=== PATIENT | female | born 1950 | race Two or more races ===

== ENCOUNTER → 2016-09-11 | Outpatient (CLI) | payer MEDICARE, MEDICAID ==
[~2016-09-11] VITALS: Ht 144.8 cm; Wt 115.0 kg
[~2016-09-11] MED LIST: ALBU2TAB42 PO; AMLO-512 PO; HYDR25TA PO; LOSA25TA21 PO; PRAV40 PO; UMEC1DIS IH
[2016-09-11 10:26] VITALS: BP 133/81
== END | disposition home or self-care (01) ==
LOC: SRCNTR 10:06
PROVIDERS: ATTEND Internal Medicine Critical Care Medicine
DX: I25.10 Atherosclerotic heart disease of native coronary artery without angina pectoris (principal); E11.9 Type 2 diabetes mellitus without complications; J96.22 Acute and chronic respiratory failure with hypercapnia; G47.33 Obstructive sleep apnea (adult) (pediatric); E66.01 Morbid (severe) obesity due to excess calories; I10 Essential (primary) hypertension
CPT/HCPCS: G0463

== ENCOUNTER → 2016-10-11 | Outpatient (CLI) | payer MEDICARE, MEDICAID | END | disposition home or self-care (01) | LOC: RESP 13:09 | PROVIDERS: ATTEND Internal Medicine Critical Care Medicine | DX: G47.33 Obstructive sleep apnea (adult) (pediatric) (principal); J96.22 Acute and chronic respiratory failure with hypercapnia | CPT/HCPCS: 94010; 94726; 94727; 94729 ==

== ENCOUNTER → 2016-11-08 | Outpatient (CLI) | payer MEDICARE, MEDICAID ==
[~2016-11-08] VITALS: Ht 147.3 cm; Wt 117.4 kg
[~2016-11-08] MED LIST changes: +TYL3B PO
[2016-11-08 11:28] VITALS: BP 124/54
== END | disposition home or self-care (01) ==
LOC: SRCNTR 10:52
PROVIDERS: ATTEND Internal Medicine Critical Care Medicine
DX: J96.22 Acute and chronic respiratory failure with hypercapnia (principal); G47.33 Obstructive sleep apnea (adult) (pediatric); E66.01 Morbid (severe) obesity due to excess calories; I25.10 Atherosclerotic heart disease of native coronary artery without angina pectoris; E11.9 Type 2 diabetes mellitus without complications; I10 Essential (primary) hypertension; J45.909 Unspecified asthma, uncomplicated; E78.5 Hyperlipidemia, unspecified; Z87.891 Personal history of nicotine dependence
CPT/HCPCS: G0463

== ENCOUNTER → 2016-11-22 | Outpatient (CLI) | payer MEDICARE, MEDICAID ==
[~2016-11-22] VITALS: Ht 147.3 cm; Wt 116.0 kg
[2016-11-22 11:28] VITALS: BP 135/58
== END | disposition home or self-care (01) ==
LOC: SRCNTR 11:03
PROVIDERS: ATTEND Hospitalist
DX: E11.65 Type 2 diabetes mellitus with hyperglycemia (principal); I10 Essential (primary) hypertension; E78.5 Hyperlipidemia, unspecified; G47.33 Obstructive sleep apnea (adult) (pediatric); E66.01 Morbid (severe) obesity due to excess calories; J45.909 Unspecified asthma, uncomplicated; I25.10 Atherosclerotic heart disease of native coronary artery without angina pectoris; M25.561 Pain in right knee; M25.562 Pain in left knee; M54.9 Dorsalgia, unspecified; L98.8 Other specified disorders of the skin and subcutaneous tissue
CPT/HCPCS: G0463

== ENCOUNTER → 2016-12-04 | Outpatient (CLI) | payer MEDICARE, MEDICAID | END | disposition home or self-care (01) | LOC: CARDPV 13:51 | PROVIDERS: ATTEND Hospitalist | DX: D49.89 Neoplasm of unspecified behavior of other specified sites (principal) | CPT/HCPCS: 76536 ==

== ENCOUNTER → 2016-12-04 | Outpatient (CLI) | payer MEDICARE, MEDICAID | END | disposition home or self-care (01) | LOC: RADPV 14:04 | PROVIDERS: ATTEND Specialist | DX: M43.17 Spondylolisthesis, lumbosacral region (principal); M51.36 Other intervertebral disc degeneration, lumbar region; M51.37 Other intervertebral disc degeneration, lumbosacral region; M47.816 Spondylosis without myelopathy or radiculopathy, lumbar region; M12.88 Other specific arthropathies, not elsewhere classified, other specified site | CPT/HCPCS: 72114 ==

== ENCOUNTER → 2016-12-04 | Outpatient (CLI) | payer MEDICARE, MEDICAID | END | disposition home or self-care (01) | LOC: RADPV 14:01 | PROVIDERS: ATTEND Internal Medicine Critical Care Medicine | DX: J44.9 Chronic obstructive pulmonary disease, unspecified (principal); I50.9 Heart failure, unspecified; I51.7 Cardiomegaly; I70.0 Atherosclerosis of aorta; M47.814 Spondylosis without myelopathy or radiculopathy, thoracic region; J98.11 Atelectasis | CPT/HCPCS: 71020 ==

== ENCOUNTER → 2017-01-31 | Outpatient (CLI) | payer MEDICARE, MEDICAID ==
[~2017-01-31] VITALS: Ht 147.3 cm; Wt 116.3 kg
[2017-01-31 11:54] VITALS: BP 126/72
== END | disposition home or self-care (01) ==
LOC: SRCNTR 11:43
PROVIDERS: ATTEND Hospitalist
DX: I10 Essential (primary) hypertension (principal); I25.10 Atherosclerotic heart disease of native coronary artery without angina pectoris; E11.9 Type 2 diabetes mellitus without complications; E78.5 Hyperlipidemia, unspecified; E66.9 Obesity, unspecified
CPT/HCPCS: G0463

== ENCOUNTER → 2017-02-07 | Outpatient (CLI) | payer MEDICARE, MEDICAID ==
[~2017-02-07] VITALS: Ht 144.8 cm; Wt 117.0 kg
[~2017-02-07] MED LIST changes: +ACET-2247 PO; +ALBU8HFA IH; +AMOX-462 PO; +LORA10TA7 PO; +METF500T4 PO; +MOME13HF IH; +NAPR-58 PO; +PRED10 PO; +PRED20 PO; +SOLI5 PO; +TERA2 PO
[2017-02-07 11:34] VITALS: BP 114/45
== END | disposition home or self-care (01) ==
LOC: SRCNTR 11:27
PROVIDERS: ATTEND Internal Medicine Critical Care Medicine
DX: I10 Essential (primary) hypertension (principal); I25.10 Atherosclerotic heart disease of native coronary artery without angina pectoris; E66.01 Morbid (severe) obesity due to excess calories; E11.9 Type 2 diabetes mellitus without complications; G47.33 Obstructive sleep apnea (adult) (pediatric); J96.22 Acute and chronic respiratory failure with hypercapnia
CPT/HCPCS: G0463

== ENCOUNTER → 2017-04-23 | Outpatient (CLI) | payer MEDICARE, OTHER ==
[~2017-04-23] MED LIST changes: -ACET-2247 PO; -ALBU8HFA IH; -AMOX-462 PO; -LORA10TA7 PO; -METF500T4 PO; -MOME13HF IH; -NAPR-58 PO; -PRAV40 PO; +PRAV40TA4 PO; -PRED10 PO; -PRED20 PO; -SOLI5 PO; -TERA2 PO
[2017-04-23 11:19] LABS: BASOPHILS % (AUTO) 0.5 % (0.0-2.0); EOSINOPHILS % (AUTO) 2.2 % (1.0-6.0); HEMATOCRIT 37.6 % (36-46); HEMOGLOBIN 12.5 g/dL (12.0-16.0); LYMPHOCYTES # (AUTO) 2.3 K/uL (1.0-4.8); LYMPHOCYTES % (AUTO) 28.2 % (22.0-44.0); MEAN CORPUSCULAR HEMOGLOBIN 32.1 pg (26.0-34.0); MEAN CORPUSCULAR HGB CONC 33.3 G/dL (31.0-37.0); MEAN CORPUSCULAR VOLUME 96 fL (80-100); MONOCYTES # (AUTO) 0.6 K/uL (0.1-1.0); MONOCYTES % (AUTO) 7.1 % (2.0-9.0); PLATELET COUNT (AUTO) 186 K/uL (150-450); RED CELL DISTRIBUTION WIDTH 15.8 % (11.5-14.5); WHITE BLOOD COUNT (AUTO) 8.1 K/uL (4.5-11.0)
[2017-04-23 11:26] LABS: HEMOGLOBIN A1C 6.2 % (4.5-6.2)
[2017-04-23 11:30] LABS: ALANINE AMINOTRANSFERASE 44 U/L (12-78); ALBUMIN 3.5 g/dL (3.4-5.0); ANION GAP 9 mmol/L (8-16); ASPARTATE AMINOTRANSFERASE 38 U/L (15-37); BILIRUBIN,TOTAL 0.3 mg/dL (0.1-1.0); CALCIUM, TOTAL 8.7 mg/dL (8.8-10.5); CARBON DIOXIDE 27 mmol/L (22-29); CHLORIDE 103 mmol/L (98-107); CHOL/HDL RATIO 5.5 (3.9-5.7); CREATININE 0.73 mg/dL (0.60-1.30); GLOMERULAR FILTR. RATE CALC > 60 mL/min (>60); POTASSIUM 3.8 mmol/L (3.5-5.1); SODIUM SERUM 139 mmol/L (136-145); THYROID STIMULATING HORMONE 2.91 uIU/mL (0.36-3.74); TOTAL PROTEIN, SERUM 7.8 g/dL (6.4-8.2); UREA NITROGEN, BLOOD 18 mg/dL (7-18)
== END | disposition home or self-care (01) ==
LOC: LABPV 07:21
PROVIDERS: ATTEND Hospitalist
DX: E11.9 Type 2 diabetes mellitus without complications (principal); E03.9 Hypothyroidism, unspecified
CPT/HCPCS: 82271; 83036; 84439; 84443

== ENCOUNTER → 2017-04-29 | Outpatient (CLI) | payer MEDICARE, MEDICAID ==
[~2017-04-29] VITALS: Ht 144.8 cm; Wt 115.0 kg
[~2017-04-29] MED LIST changes: +BACL10TA PO; +NAPR-58 PO; +UMEC1DIS PO
[2017-04-29 12:40] VITALS: BP 138/61
== END | disposition home or self-care (01) ==
LOC: SRCNTR 12:38
PROVIDERS: ATTEND Hospitalist
DX: I10 Essential (primary) hypertension (principal); E66.01 Morbid (severe) obesity due to excess calories; E78.5 Hyperlipidemia, unspecified; I25.10 Atherosclerotic heart disease of native coronary artery without angina pectoris; E11.65 Type 2 diabetes mellitus with hyperglycemia; J45.909 Unspecified asthma, uncomplicated; G47.33 Obstructive sleep apnea (adult) (pediatric)
CPT/HCPCS: G0463

== ENCOUNTER → 2017-06-19 | Outpatient (CLI) | payer MEDICARE, MEDICAID ==
[~2017-06-19] MED LIST changes: +INFLUENZA VIRUS VACCINE QVS 2017-18 (3YR+)/PF 60 MCG/0.5 ML SYRINGE IM ONE; -UMEC1DIS PO
[2017-06-19 13:51] VITALS: BP 147/78
== END | disposition home or self-care (01) ==
LOC: SRCNTR 13:26
PROVIDERS: ATTEND Internal Medicine Critical Care Medicine
DX: G47.33 Obstructive sleep apnea (adult) (pediatric) (principal); J96.22 Acute and chronic respiratory failure with hypercapnia; J44.9 Chronic obstructive pulmonary disease, unspecified; I10 Essential (primary) hypertension; E11.9 Type 2 diabetes mellitus without complications; E66.01 Morbid (severe) obesity due to excess calories; E78.5 Hyperlipidemia, unspecified; I25.10 Atherosclerotic heart disease of native coronary artery without angina pectoris; Z87.891 Personal history of nicotine dependence
CPT/HCPCS: 90471 ×2; G0463

== ENCOUNTER → 2017-07-18 | Outpatient (CLI) | payer MEDICARE, MEDICAID ==
[~2017-07-18] VITALS: Ht 144.8 cm; Wt 117.0 kg
[~2017-07-18] MED LIST changes: -INFLUENZA VIRUS VACCINE QVS 2017-18 (3YR+)/PF 60 MCG/0.5 ML SYRINGE IM ONE
[2017-07-18 13:55] VITALS: BP 142/66
== END | disposition home or self-care (01) ==
LOC: SRCNTR 12:43
PROVIDERS: ATTEND Hospitalist
DX: G47.33 Obstructive sleep apnea (adult) (pediatric) (principal); E66.01 Morbid (severe) obesity due to excess calories; E11.9 Type 2 diabetes mellitus without complications; E78.5 Hyperlipidemia, unspecified; I10 Essential (primary) hypertension; I25.10 Atherosclerotic heart disease of native coronary artery without angina pectoris; J44.9 Chronic obstructive pulmonary disease, unspecified; M25.561 Pain in right knee; M25.562 Pain in left knee
CPT/HCPCS: G0463

== ENCOUNTER → 2017-10-03 | Outpatient (CLI) | payer MEDICARE, MEDICAID ==
[~2017-10-03] VITALS: Ht 144.8 cm; Wt 113.0 kg
[~2017-10-03] MED LIST changes: +AUD NEB; -BACL10TA PO; +BENZ-51 PO; +BUDE0.5A3 NEB; +FLUT16H NASAL; +IPRNEB IH; +PRED20 PO
[2017-10-03 12:43] VITALS: BP 102/43
== END | disposition home or self-care (01) ==
LOC: SRCNTR 12:30
PROVIDERS: ATTEND Internal Medicine Critical Care Medicine
DX: J96.22 Acute and chronic respiratory failure with hypercapnia (principal); G47.33 Obstructive sleep apnea (adult) (pediatric); J44.1 Chronic obstructive pulmonary disease with (acute) exacerbation; E66.01 Morbid (severe) obesity due to excess calories; I25.10 Atherosclerotic heart disease of native coronary artery without angina pectoris; I10 Essential (primary) hypertension; E11.9 Type 2 diabetes mellitus without complications; E78.5 Hyperlipidemia, unspecified
CPT/HCPCS: G0463

== ENCOUNTER → 2017-10-17 | Outpatient (CLI) | payer MEDICARE, MEDICAID ==
[~2017-10-17] VITALS: Ht 147.3 cm; Wt 115.0 kg
[2017-10-17 11:49] VITALS: BP 142/66
== END | disposition home or self-care (01) ==
LOC: SRCNTR 11:43
PROVIDERS: ATTEND Hospitalist
DX: J44.9 Chronic obstructive pulmonary disease, unspecified (principal); E78.5 Hyperlipidemia, unspecified; I10 Essential (primary) hypertension; E66.9 Obesity, unspecified; G47.33 Obstructive sleep apnea (adult) (pediatric); M25.561 Pain in right knee; M25.562 Pain in left knee; I25.10 Atherosclerotic heart disease of native coronary artery without angina pectoris; J45.909 Unspecified asthma, uncomplicated
CPT/HCPCS: G0463

== ENCOUNTER → 2017-11-18 | Outpatient (CLI) | payer MEDICARE, MEDICAID ==
[~2017-11-18] VITALS: Ht 144.8 cm; Wt 119.0 kg
[~2017-11-18] MED LIST changes: +ALBU8HFA IH; -AUD NEB; -BUDE0.5A3 NEB; -IPRNEB IH; -PRED20 PO
[2017-11-18 12:03] VITALS: BP 137/54
== END | disposition home or self-care (01) ==
LOC: SRCNTR 12:02
PROVIDERS: ATTEND Hospitalist
DX: I10 Essential (primary) hypertension (principal); E78.5 Hyperlipidemia, unspecified; I25.10 Atherosclerotic heart disease of native coronary artery without angina pectoris; E66.01 Morbid (severe) obesity due to excess calories; J45.909 Unspecified asthma, uncomplicated; E11.9 Type 2 diabetes mellitus without complications
CPT/HCPCS: G0463

== ENCOUNTER → 2017-12-09 | Outpatient (CLI) | payer MEDICARE, MEDICAID ==
[~2017-12-09] VITALS: Ht 144.8 cm; Wt 119.0 kg
[2017-12-09 13:21] VITALS: BP 153/84
== END | disposition home or self-care (01) ==
LOC: SRCNTR 13:04
PROVIDERS: ATTEND Internal Medicine Critical Care Medicine
DX: J96.22 Acute and chronic respiratory failure with hypercapnia (principal); G47.33 Obstructive sleep apnea (adult) (pediatric); E66.01 Morbid (severe) obesity due to excess calories; I25.10 Atherosclerotic heart disease of native coronary artery without angina pectoris; E11.9 Type 2 diabetes mellitus without complications; I10 Essential (primary) hypertension; J45.909 Unspecified asthma, uncomplicated; E78.5 Hyperlipidemia, unspecified
CPT/HCPCS: G0463

== ENCOUNTER → 2018-02-17 | Outpatient (CLI) | payer MEDICARE, MEDICAID ==
[~2018-02-17] VITALS: Ht 144.8 cm; Wt 114.5 kg
[~2018-02-17] MED LIST changes: -ALBU2TAB42 PO
[2018-02-17 11:35] VITALS: BP 178/67
== END | disposition home or self-care (01) ==
LOC: SRCNTR 11:24
PROVIDERS: ATTEND Internal Medicine Critical Care Medicine
DX: J96.22 Acute and chronic respiratory failure with hypercapnia (principal); G47.33 Obstructive sleep apnea (adult) (pediatric); J45.909 Unspecified asthma, uncomplicated; I10 Essential (primary) hypertension; E11.9 Type 2 diabetes mellitus without complications; E78.5 Hyperlipidemia, unspecified; I25.10 Atherosclerotic heart disease of native coronary artery without angina pectoris; E66.01 Morbid (severe) obesity due to excess calories
CPT/HCPCS: G0463

== ENCOUNTER → 2018-04-24 | Outpatient (CLI) | payer MEDICARE, MEDICAID ==
[~2018-04-24] MED LIST changes: +LOSA25TA16 PO; -LOSA25TA21 PO
[2018-04-24 09:38] VITALS: BP 157/81
== END | disposition home or self-care (01) ==
LOC: SRCNTR 09:31
PROVIDERS: ATTEND Hospitalist
DX: J43.9 Emphysema, unspecified (principal); I25.10 Atherosclerotic heart disease of native coronary artery without angina pectoris; E78.00 Pure hypercholesterolemia, unspecified; I10 Essential (primary) hypertension; E11.9 Type 2 diabetes mellitus without complications
CPT/HCPCS: 90471; 96372; G0463

== ENCOUNTER → 2018-05-22 | Outpatient (CLI) | payer MEDICARE, MEDICAID ==
[~2018-05-22] VITALS: Ht 144.8 cm; Wt 114.0 kg
[2018-05-22 13:09] VITALS: BP 175/78
[2018-05-22 14:14] LABS: GLUCOMETER DEV NAME(LOC) SHC; GLUCOSE,POINT OF CARE 146 MG/DL (70-110)
== END | disposition home or self-care (01) ==
LOC: SRCNTR 11:51
PROVIDERS: ATTEND Hospitalist
DX: G47.33 Obstructive sleep apnea (adult) (pediatric) (principal); E66.9 Obesity, unspecified; I10 Essential (primary) hypertension; E11.65 Type 2 diabetes mellitus with hyperglycemia; E78.5 Hyperlipidemia, unspecified; I25.10 Atherosclerotic heart disease of native coronary artery without angina pectoris; R43.0 Anosmia; J45.909 Unspecified asthma, uncomplicated; M25.561 Pain in right knee; M25.562 Pain in left knee
CPT/HCPCS: 82962 ×2; G0463

== ENCOUNTER → 2018-06-13 | Outpatient (CLI) | payer MEDICARE, OTHER ==
[2018-06-13 10:13] LABS: EOSINOPHILS % (AUTO) 0 % (1.0-6.0); HEMATOCRIT 40.8 % (36-46); HEMOGLOBIN 13.7 g/dL (12.0-16.0); LYMPHOCYTES # (AUTO) 1.3 K/uL (1.0-4.8); LYMPHOCYTES % (AUTO) 11.7 % (22.0-44.0); MEAN CORPUSCULAR HEMOGLOBIN 32.2 pg (26.0-34.0); MEAN CORPUSCULAR HGB CONC 33.6 G/dL (31.0-37.0); MEAN CORPUSCULAR VOLUME 96 fL (80-100); MONOCYTES # (AUTO) 0.4 K/uL (0.1-1.0); MONOCYTES % (AUTO) 3.9 % (2.0-9.0); NEUTROPHILS # (AUTO) 9.5 K/uL (1.8-7.7); NEUTROPHILS % (AUTO) 84.4 % (40.0-70.0); PLATELET COUNT (AUTO) 212 K/uL (150-450); RED BLOOD CELL COUNT(AUTO) 4.26 MIL/uL (4.00-5.20)
[2018-06-13 10:27] LABS: APPEARANCE,URINE CLEAR (CLEAR); BILIRUBIN,URINE NEGATIVE (NEGATIVE); GLUCOSE, URINE (UA) NEGATIVE (NEGATIVE); KETONES,URINE NEGATIVE (NEGATIVE); LEUKOCYTE ESTERASE ,URINE NEGATIVE (NEGATIVE); NITRATE,URINE NEGATIVE (NEGATIVE); OCCULT BLOOD,URINE NEGATIVE (NEGATIVE); PH,URINE 6.5 (5.0-8.0); PROTEIN,URINE NEGATIVE (NEGATIVE); UROBILINOGEN,URINE 0.2 mg/dL (<=1.0)
[2018-06-13 10:32] LABS: ALANINE AMINOTRANSFERASE 30 U/L (12-78); ALBUMIN 3.8 g/dL (3.4-5.0); ALKALINE PHOSPHATASE 88 U/L (46-116); ANION GAP 8 mmol/L (8-16); ASPARTATE AMINOTRANSFERASE 24 U/L (15-37); BILIRUBIN,TOTAL 0.3 mg/dL (0.1-1.0); CALCIUM, TOTAL 8.8 mg/dL (8.8-10.5); CARBON DIOXIDE 27 mmol/L (22-29); CHLORIDE 103 mmol/L (98-107); CHOL/HDL RATIO 3.6 (3.9-5.7); CHOLESTEROL 249 mg/dL (131-200); CREATININE 0.69 mg/dL (0.60-1.30); FREE T4 (FREE THYROXINE) 1.11 ng/dL (0.76-1.46); GLOMERULAR FILTR. RATE CALC > 60 mL/min (>60); GLUCOSE,RANDOM 175 mg/dL (70-110); HDL CHOLESTEROL 69 mg/dL (40-60); LDL CHOL (CALC.) 167 mg/dL (0-130); POTASSIUM 4.3 mmol/L (3.5-5.1); SODIUM SERUM 138 mmol/L (136-145); TOTAL PROTEIN, SERUM 8.1 g/dL (6.4-8.2); TRIGLYCERIDES 64 mg/dL (15-150); UREA NITROGEN, BLOOD 13 mg/dL (7-18)
[2018-06-13 10:35] LABS: HEMOGLOBIN A1C 6.4 % (4.5-6.2)
== END | disposition home or self-care (01) ==
LOC: MSR 08:47
PROVIDERS: ATTEND Hospitalist
DX: I73.9 Peripheral vascular disease, unspecified (principal); M17.0 Bilateral primary osteoarthritis of knee; E78.5 Hyperlipidemia, unspecified; E11.9 Type 2 diabetes mellitus without complications; I10 Essential (primary) hypertension; M81.0 Age-related osteoporosis without current pathological fracture
CPT/HCPCS: 77080; 83036; 84439; 84443; 87086; 93925; 93970

== ENCOUNTER → 2018-07-03 | Outpatient (CLI) | payer MEDICARE, MEDICAID ==
[~2018-07-03] VITALS: Ht 144.8 cm; Wt 114.0 kg
[2018-07-03 14:22] VITALS: BP 172/66
== END | disposition home or self-care (01) ==
LOC: SRCNTR 14:11
PROVIDERS: ATTEND Internal Medicine Critical Care Medicine
DX: J96.22 Acute and chronic respiratory failure with hypercapnia (principal); G47.33 Obstructive sleep apnea (adult) (pediatric); E66.01 Morbid (severe) obesity due to excess calories; I25.10 Atherosclerotic heart disease of native coronary artery without angina pectoris; I10 Essential (primary) hypertension; E11.9 Type 2 diabetes mellitus without complications; J45.909 Unspecified asthma, uncomplicated; E78.5 Hyperlipidemia, unspecified
CPT/HCPCS: G0463

== ENCOUNTER → 2018-07-17 | Outpatient (CLI) | payer MEDICARE, OTHER ==
[~2018-07-17] VITALS: Ht 144.8 cm; Wt 113.0 kg
[~2018-07-17] MED LIST changes: +AMOX1TAB16 PO; -LOSA25TA16 PO; +LOSA25TA41 PO; +PROM5SYR2 PO; +ROSU40 PO
[2018-07-17 10:39] VITALS: BP 122/58
== END | disposition home or self-care (01) ==
LOC: SRCNTR 10:33
PROVIDERS: ATTEND Hospitalist
DX: I10 Essential (primary) hypertension (principal); E11.65 Type 2 diabetes mellitus with hyperglycemia; E78.5 Hyperlipidemia, unspecified; J45.909 Unspecified asthma, uncomplicated; I25.10 Atherosclerotic heart disease of native coronary artery without angina pectoris; G47.33 Obstructive sleep apnea (adult) (pediatric); E66.9 Obesity, unspecified; M54.9 Dorsalgia, unspecified; R43.0 Anosmia
CPT/HCPCS: G0463

== ENCOUNTER → 2018-10-14 | Outpatient (CLI) | payer MEDICARE, OTHER ==
[~2018-10-14] MED LIST changes: +ATOR20TA86 PO; -BENZ-51 PO; +METF-960 PO; -PRAV40TA4 PO; -UMEC1DIS IH
== END | disposition home or self-care (01) ==
LOC: MSR 13:21
PROVIDERS: ATTEND Internal Medicine Critical Care Medicine
DX: I70.0 Atherosclerosis of aorta (principal); I11.9 Hypertensive heart disease without heart failure; Z87.891 Personal history of nicotine dependence
CPT/HCPCS: 94010; 94726; 94727; 94729

== ENCOUNTER → 2018-10-17 | Outpatient (CLI) | payer MEDICARE, OTHER ==
[~2018-10-17] VITALS: Ht 144.8 cm; Wt 115.0 kg
[2018-10-17 15:57] VITALS: BP 143/75
== END | disposition home or self-care (01) ==
LOC: SRCNTR 15:41
PROVIDERS: ATTEND Internal Medicine Critical Care Medicine
DX: J96.22 Acute and chronic respiratory failure with hypercapnia (principal); G47.33 Obstructive sleep apnea (adult) (pediatric); I25.10 Atherosclerotic heart disease of native coronary artery without angina pectoris; E11.9 Type 2 diabetes mellitus without complications; I10 Essential (primary) hypertension
CPT/HCPCS: G0463

== ENCOUNTER → 2018-10-23 | Outpatient (CLI) | payer MEDICARE, OTHER ==
[~2018-10-23] VITALS: Ht 144.8 cm; Wt 115.0 kg
[~2018-10-23] MED LIST changes: -AMOX1TAB16 PO; -FLUT16H NASAL; -NAPR-58 PO; -ROSU40 PO; -TYL3B PO
[2018-10-23 11:49] VITALS: BP 138/57
== END | disposition home or self-care (01) ==
LOC: SRCNTR 11:40
PROVIDERS: ATTEND Hospitalist
DX: E78.5 Hyperlipidemia, unspecified (principal); I10 Essential (primary) hypertension; E11.9 Type 2 diabetes mellitus without complications; J45.909 Unspecified asthma, uncomplicated; I25.10 Atherosclerotic heart disease of native coronary artery without angina pectoris; E66.01 Morbid (severe) obesity due to excess calories
CPT/HCPCS: G0463

== ENCOUNTER → 2019-04-17 | Outpatient (CLI) | payer MEDICARE, OTHER ==
[~2019-04-17] MED LIST changes: -AMLO-512 PO; +AMLO10TA7 PO
[2019-04-17 11:24] LABS: BASOPHILS % (AUTO) 0.7 % (0.0-2.0); EOSINOPHILS % (AUTO) 1.9 % (1.0-6.0); HEMATOCRIT 38.7 % (36-46); HEMOGLOBIN 12.7 g/dL (12.0-16.0); LYMPHOCYTES # (AUTO) 2.3 K/uL (1.0-4.8); LYMPHOCYTES % (AUTO) 27.4 % (22.0-44.0); MEAN CORPUSCULAR HEMOGLOBIN 30.8 pg (26.0-34.0); MEAN CORPUSCULAR HGB CONC 32.7 G/dL (31.0-37.0); MEAN CORPUSCULAR VOLUME 94 fL (80-100); MONOCYTES # (AUTO) 0.6 K/uL (0.1-1.0); NEUTROPHILS # (AUTO) 5.3 K/uL (1.8-7.7); PLATELET COUNT (AUTO) 194 K/uL (150-450); RED BLOOD CELL COUNT(AUTO) 4.12 MIL/uL (4.00-5.20); RED CELL DISTRIBUTION WIDTH 15.8 % (11.5-14.5)
[2019-04-17 11:29] LABS: HEMOGLOBIN A1C 6.4 % (4.5-6.2)
[2019-04-17 12:13] LABS: ALANINE AMINOTRANSFERASE 31 U/L (12-78); ALBUMIN 3.6 g/dL (3.4-5.0); ALKALINE PHOSPHATASE 79 U/L (46-116); ANION GAP 11 mmol/L (8-16); ASPARTATE AMINOTRANSFERASE 24 U/L (15-37); BILIRUBIN,TOTAL 0.5 mg/dL (0.1-1.0); CALCIUM, TOTAL 9.7 mg/dL (8.8-10.5); CARBON DIOXIDE 26 mmol/L (22-29); CHLORIDE 102 mmol/L (98-107); CHOL/HDL RATIO 5.1 (3.9-5.7); CHOLESTEROL 229 mg/dL (131-200); CREATININE 0.67 mg/dL (0.60-1.30); FREE T4 (FREE THYROXINE) 1.13 ng/dL (0.76-1.46); GLOMERULAR FILTR. RATE CALC > 60 mL/min (>60); GLUCOSE,RANDOM 120 mg/dL (70-110); HDL CHOLESTEROL 45 mg/dL (40-60); LDL CHOL (CALC.) 157 mg/dL (0-130); POTASSIUM 3.8 mmol/L (3.5-5.1); SODIUM SERUM 139 mmol/L (136-145); THYROID STIMULATING HORMONE 2.28 uIU/mL (0.36-3.74); TOTAL PROTEIN, SERUM 8.1 g/dL (6.4-8.2); TRIGLYCERIDES 133 mg/dL (15-150)
[2019-04-17 12:28] LABS: UREA NITROGEN, BLOOD 13 mg/dL (7-18)
== END | disposition home or self-care (01) ==
LOC: LABPV 10:39
PROVIDERS: ATTEND Hospitalist
DX: I10 Essential (primary) hypertension (principal); I25.10 Atherosclerotic heart disease of native coronary artery without angina pectoris; E78.00 Pure hypercholesterolemia, unspecified; E11.9 Type 2 diabetes mellitus without complications; J43.9 Emphysema, unspecified; J45.909 Unspecified asthma, uncomplicated; G47.30 Sleep apnea, unspecified
CPT/HCPCS: 83036; 84439; 84443

== ENCOUNTER → 2020-06-09 | Outpatient (CLI) | payer MEDICARE, OTHER ==
[~2020-06-09] VITALS: Ht 147.3 cm; Wt 107.3 kg
[~2020-06-09] MED LIST changes: +AMLO-258 PO; -AMLO10TA7 PO; +DICL100G31 TP; +DOXE45CR5 TP; +HYDR-1475 PO; -HYDR25TA PO; +INFLUENZA VIRUS VACCINE QVS 2020-21 (6MO+)/PF 60 MCG/0.5 ML SYRINGE IM ONE; +LOSA25TA21 PO; -LOSA25TA41 PO; -PROM5SYR2 PO
[2020-06-09 11:48] VITALS: BP 169/69
== END | disposition home or self-care (01) ==
LOC: SRCNTR 11:28
PROVIDERS: ATTEND Hospitalist
DX: I10 Essential (primary) hypertension (principal); I25.10 Atherosclerotic heart disease of native coronary artery without angina pectoris; G47.33 Obstructive sleep apnea (adult) (pediatric); E66.01 Morbid (severe) obesity due to excess calories; E78.5 Hyperlipidemia, unspecified; E11.9 Type 2 diabetes mellitus without complications; M25.562 Pain in left knee; M25.561 Pain in right knee; M54.9 Dorsalgia, unspecified; J45.909 Unspecified asthma, uncomplicated; Z23 Encounter for immunization
CPT/HCPCS: 90471; 90686; G0463

== ENCOUNTER → 2020-08-16 | Outpatient (CLI) | payer MEDICARE ==
[~2020-08-16] MED LIST changes: -INFLUENZA VIRUS VACCINE QVS 2020-21 (6MO+)/PF 60 MCG/0.5 ML SYRINGE IM ONE
[2020-08-16 10:06] LABS: BASOPHILS % (AUTO) 0.7 % (0.0-2.0); EOSINOPHILS % (AUTO) 1.6 % (1.0-6.0); HEMOGLOBIN 13.4 g/dL (12.0-16.0); LYMPHOCYTES # (AUTO) 2.6 K/uL (1.0-4.8); LYMPHOCYTES % (AUTO) 29.1 % (22.0-44.0); MEAN CORPUSCULAR HEMOGLOBIN 31.5 pg (26.0-34.0); MEAN CORPUSCULAR HGB CONC 32.8 G/dL (31.0-37.0); MEAN CORPUSCULAR VOLUME 96 fL (80-100); MONOCYTES # (AUTO) 0.6 K/uL (0.1-1.0); MONOCYTES % (AUTO) 6.3 % (2.0-9.0); NEUTROPHILS # (AUTO) 5.5 K/uL (1.8-7.7); NEUTROPHILS % (AUTO) 62.3 % (40.0-70.0); PLATELET COUNT (AUTO) 202 K/uL (150-450); RED BLOOD CELL COUNT(AUTO) 4.27 MIL/uL (4.00-5.20); RED CELL DISTRIBUTION WIDTH 15.2 % (11.5-14.5)
[2020-08-16 10:22] LABS: ALANINE AMINOTRANSFERASE 20 U/L (12-78); ALBUMIN 3.4 g/dL (3.4-5.0); ALKALINE PHOSPHATASE 96 U/L (46-116); ANION GAP 9 mmol/L (8-16); ASPARTATE AMINOTRANSFERASE 17 U/L (15-37); BILIRUBIN,TOTAL 0.4 mg/dL (0.1-1.0); CALCIUM, TOTAL 8.6 mg/dL (8.8-10.5); CARBON DIOXIDE 29 mmol/L (22-29); CHLORIDE 101 mmol/L (98-107); CHOL/HDL RATIO 3.5 (3.9-5.7); CHOLESTEROL 197 mg/dL (131-200); GLUCOSE,RANDOM 108 mg/dL (70-110); HDL CHOLESTEROL 56 mg/dL (40-60); LDL CHOL (CALC.) 116 mg/dL (0-130); POTASSIUM 4.2 mmol/L (3.5-5.1); SODIUM SERUM 139 mmol/L (136-145); TOTAL PROTEIN, SERUM 7.7 g/dL (6.4-8.2); TRIGLYCERIDES 123 mg/dL (15-150); UREA NITROGEN, BLOOD 14 mg/dL (7-18)
[2020-08-16 10:23] LABS: GLOMERULAR FILTR. RATE CALC > 60 mL/min (>60)
[2020-08-16 10:32] LABS: APPEARANCE,URINE CLEAR (CLEAR); BILIRUBIN,URINE NEGATIVE (NEGATIVE); GLUCOSE, URINE (UA) NEGATIVE (NEGATIVE); KETONES,URINE NEGATIVE (NEGATIVE); LEUKOCYTE ESTERASE ,URINE NEGATIVE (NEGATIVE); NITRATE,URINE NEGATIVE (NEGATIVE); OCCULT BLOOD,URINE NEGATIVE (NEGATIVE); PH,URINE 5.5 (5.0-8.0); PROTEIN,URINE NEGATIVE (NEGATIVE); UROBILINOGEN,URINE 0.2 mg/dL (<=1.0)
[2020-08-16 10:34] LABS: BACTERIA,URINE None Seen /HPF (None Seen); RBC,URINE None Seen /HPF (0-2); WBC,URINE None Seen /HPF (0-5)
== END | disposition home or self-care (01) ==
LOC: LABPV 09:32
PROVIDERS: ATTEND Hospitalist
DX: E11.9 Type 2 diabetes mellitus without complications (principal)
CPT/HCPCS: 83036

== ENCOUNTER → 2020-08-29 | Outpatient (CLI) | payer MEDICARE ==
[~2020-08-29] VITALS: Ht 144.8 cm; Wt 108.6 kg
[2020-08-29 11:58] VITALS: BP 141/66
== END | disposition home or self-care (01) ==
LOC: SRCNTR 11:27
PROVIDERS: ATTEND Internal Medicine Critical Care Medicine
DX: G47.33 Obstructive sleep apnea (adult) (pediatric) (principal); I25.10 Atherosclerotic heart disease of native coronary artery without angina pectoris; E11.9 Type 2 diabetes mellitus without complications; I10 Essential (primary) hypertension; J96.22 Acute and chronic respiratory failure with hypercapnia
CPT/HCPCS: G0463

== ENCOUNTER → 2020-09-01 | Outpatient (CLI) | payer MEDICARE | END | disposition home or self-care (01) | LOC: RADPV 10:29 | PROVIDERS: ATTEND Internal Medicine Critical Care Medicine | DX: M19.012 Primary osteoarthritis, left shoulder (principal); M77.8 Other enthesopathies, not elsewhere classified; I70.0 Atherosclerosis of aorta; I51.7 Cardiomegaly; J44.9 Chronic obstructive pulmonary disease, unspecified | CPT/HCPCS: 71046; 71046-TC ==

== ENCOUNTER → 2020-09-08 | Outpatient (CLI) | payer MEDICARE, OTHER ==
[~2020-09-08] VITALS: Ht 144.8 cm; Wt 109.0 kg
[2020-09-08 10:45] VITALS: BP 152/72
== END | disposition home or self-care (01) ==
LOC: SRCNTR 10:30
PROVIDERS: ATTEND Hospitalist
DX: I10 Essential (primary) hypertension (principal); E11.9 Type 2 diabetes mellitus without complications; E78.5 Hyperlipidemia, unspecified; I25.10 Atherosclerotic heart disease of native coronary artery without angina pectoris; J45.909 Unspecified asthma, uncomplicated; E66.01 Morbid (severe) obesity due to excess calories
CPT/HCPCS: G0463

== ENCOUNTER → 2020-12-07 | Outpatient (CLI) | payer MEDICARE, OTHER ==
[~2020-12-07] VITALS: Ht 144.8 cm; Wt 108.5 kg
[~2020-12-07] MED LIST changes: -HYDR-1475 PO; +HYDR25TA2 PO
[2020-12-07 10:50] VITALS: BP 152/56
== END | disposition home or self-care (01) ==
LOC: SRCNTR 10:28
PROVIDERS: ATTEND Hospitalist
DX: I10 Essential (primary) hypertension (principal); E11.9 Type 2 diabetes mellitus without complications; E78.5 Hyperlipidemia, unspecified; I25.10 Atherosclerotic heart disease of native coronary artery without angina pectoris; J45.909 Unspecified asthma, uncomplicated; K64.9 Unspecified hemorrhoids; E66.01 Morbid (severe) obesity due to excess calories
CPT/HCPCS: G0463; Z7500

== ENCOUNTER → 2021-03-03 | Outpatient (CLI) | payer MEDICARE, OTHER ==
[2021-03-03 12:33] LABS: BASOPHILS % (AUTO) 0.8 % (0.0-2.0); EOSINOPHILS % (AUTO) 1.5 % (1.0-6.0); HEMATOCRIT 39.8 % (36-46); HEMOGLOBIN 12.9 g/dL (12.0-16.0); LYMPHOCYTES % (AUTO) 24.3 % (22.0-44.0); MEAN CORPUSCULAR HEMOGLOBIN 31.7 pg (26.0-34.0); MEAN CORPUSCULAR HGB CONC 32.5 G/dL (31.0-37.0); MEAN CORPUSCULAR VOLUME 98 fL (80-100); MONOCYTES # (AUTO) 0.6 K/uL (0.1-1.0); MONOCYTES % (AUTO) 7.6 % (2.0-9.0); NEUTROPHILS # (AUTO) 5.5 K/uL (1.8-7.7); NEUTROPHILS % (AUTO) 65.8 % (40.0-70.0); PLATELET COUNT (AUTO) 189 K/uL (150-450); RED BLOOD CELL COUNT(AUTO) 4.07 MIL/uL (4.00-5.20); RED CELL DISTRIBUTION WIDTH 14.8 % (11.5-14.5)
[2021-03-03 12:43] LABS: HEMOGLOBIN A1C 6.1 % (3.8-5.6)
[2021-03-03 12:49] LABS: ALANINE AMINOTRANSFERASE 22 U/L (12-78); ALBUMIN 3.5 g/dL (3.4-5.0); ALKALINE PHOSPHATASE 75 U/L (46-116); ANION GAP 7 mmol/L (8-16); ASPARTATE AMINOTRANSFERASE 19 U/L (15-37); BILIRUBIN,TOTAL 0.5 mg/dL (0.1-1.0); CALCIUM, TOTAL 8.9 mg/dL (8.8-10.5); CARBON DIOXIDE 29 mmol/L (22-29); CHLORIDE 103 mmol/L (98-107); CHOL/HDL RATIO 4.3 (3.9-5.7); CHOLESTEROL 229 mg/dL (131-200); CREATININE 0.46 mg/dL (0.60-1.30); GLOMERULAR FILTR. RATE CALC > 60 mL/min (>60); GLUCOSE,RANDOM 109 mg/dL (70-110); HDL CHOLESTEROL 53 mg/dL (40-60); LDL CHOL (CALC.) 147 mg/dL (0-130); SODIUM SERUM 139 mmol/L (136-145); TOTAL PROTEIN, SERUM 7.5 g/dL (6.4-8.2); TRIGLYCERIDES 146 mg/dL (15-150); UREA NITROGEN, BLOOD 12 mg/dL (7-18)
== END | disposition home or self-care (01) ==
LOC: LABPV 11:50
PROVIDERS: ATTEND Hospitalist
DX: M25.511 Pain in right shoulder (principal); M75.101 Unspecified rotator cuff tear or rupture of right shoulder, not specified as traumatic; I10 Essential (primary) hypertension; E11.9 Type 2 diabetes mellitus without complications
CPT/HCPCS: 80053; 80061; 83036; 85025

== ENCOUNTER → 2021-03-09 | Outpatient (CLI) | payer MEDICARE, OTHER ==
[~2021-03-09] VITALS: Ht 144.8 cm; Wt 109.3 kg
[2021-03-09 10:36] VITALS: BP 164/70
== END | disposition home or self-care (01) ==
LOC: SRCNTR 10:17
PROVIDERS: ATTEND Hospitalist
DX: M25.511 Pain in right shoulder (principal); I10 Essential (primary) hypertension; E11.9 Type 2 diabetes mellitus without complications; E78.5 Hyperlipidemia, unspecified; I25.10 Atherosclerotic heart disease of native coronary artery without angina pectoris; J45.909 Unspecified asthma, uncomplicated; K64.9 Unspecified hemorrhoids; E66.01 Morbid (severe) obesity due to excess calories; Z68.43 Body mass index [BMI] 50.0-59.9, adult
CPT/HCPCS: G0463; Z7500

== ENCOUNTER → 2021-06-15 | Outpatient (CLI) | payer MEDICARE, OTHER ==
[~2021-06-15] VITALS: Ht 144.8 cm; Wt 110.0 kg
[~2021-06-15] MED LIST changes: +LOSA-370 PO; -LOSA25TA21 PO; +METF-1211 PO; -METF-960 PO
[2021-06-15 10:43] VITALS: BP 167/80
== END | disposition home or self-care (01) ==
LOC: SRCNTR 10:08
PROVIDERS: ATTEND Hospitalist
DX: I11.9 Hypertensive heart disease without heart failure (principal); I25.10 Atherosclerotic heart disease of native coronary artery without angina pectoris; E11.8 Type 2 diabetes mellitus with unspecified complications; J45.909 Unspecified asthma, uncomplicated; E78.5 Hyperlipidemia, unspecified; E66.01 Morbid (severe) obesity due to excess calories
CPT/HCPCS: G0463; Z7500

== ENCOUNTER → 2021-07-03 | Outpatient (CLI) | payer MEDICARE, OTHER ==
[~2021-07-03] VITALS: Ht 142.2 cm; Wt 110.4 kg
[~2021-07-03] MED LIST changes: +INFLUENZA VIRUS VACCINE QVS 2021-22 (6MO+)/PF 60 MCG/0.5 ML SYRINGE IM. ONE; -LOSA-370 PO; +LOSA25TA21 PO
[2021-07-03 11:11] VITALS: BP 156/79
== END | disposition home or self-care (01) ==
LOC: SRCNTR 10:32
PROVIDERS: ATTEND Internal Medicine Critical Care Medicine
DX: Z23 Encounter for immunization (principal); I25.10 Atherosclerotic heart disease of native coronary artery without angina pectoris; I10 Essential (primary) hypertension; E78.5 Hyperlipidemia, unspecified; Z68.43 Body mass index [BMI] 50.0-59.9, adult; E11.9 Type 2 diabetes mellitus without complications; J45.909 Unspecified asthma, uncomplicated; E66.01 Morbid (severe) obesity due to excess calories
CPT/HCPCS: 90471; 90686; G0463

== ENCOUNTER → 2022-03-21 | Outpatient (CLI) | payer MEDICARE, OTHER ==
[~2022-03-21] MED LIST changes: -INFLUENZA VIRUS VACCINE QVS 2021-22 (6MO+)/PF 60 MCG/0.5 ML SYRINGE IM. ONE; +LOSA-381 PO; -LOSA25TA21 PO
[2022-03-21 12:10] VITALS: BP 146/62
== END | disposition home or self-care (01) ==
LOC: SRCNTR 11:45
PROVIDERS: ATTEND Internal Medicine Critical Care Medicine
DX: I10 Essential (primary) hypertension (principal); I25.10 Atherosclerotic heart disease of native coronary artery without angina pectoris; E11.9 Type 2 diabetes mellitus without complications; J45.909 Unspecified asthma, uncomplicated; E78.5 Hyperlipidemia, unspecified; E66.9 Obesity, unspecified; G47.33 Obstructive sleep apnea (adult) (pediatric); J96.22 Acute and chronic respiratory failure with hypercapnia
CPT/HCPCS: G0463; Z7500

== ENCOUNTER → 2022-03-29 | Outpatient (CLI) | payer MEDICARE, OTHER ==
[~2022-03-29] VITALS: Ht 144.8 cm; Wt 106.4 kg
[2022-03-29 13:29] VITALS: BP 137/52
== END | disposition home or self-care (01) ==
LOC: SRCNTR 12:31
PROVIDERS: ATTEND Hospitalist
DX: I10 Essential (primary) hypertension (principal); E78.5 Hyperlipidemia, unspecified; E66.9 Obesity, unspecified
CPT/HCPCS: G0463

== ENCOUNTER → 2022-04-17 | Outpatient (CLI) | payer MEDICARE, OTHER ==
[2022-04-17 10:42] LABS: BASOPHILS % (AUTO) 0.7 % (0.0-2.0); EOSINOPHILS % (AUTO) 0.8 % (1.0-6.0); HEMATOCRIT 39.8 % (36-46); LYMPHOCYTES # (AUTO) 1.9 K/uL (1.0-4.8); LYMPHOCYTES % (AUTO) 19.3 % (22.0-44.0); MEAN CORPUSCULAR HEMOGLOBIN 31.1 pg (26.0-34.0); MEAN CORPUSCULAR HGB CONC 32.8 G/dL (31.0-37.0); MEAN CORPUSCULAR VOLUME 95 fL (80-100); MONOCYTES # (AUTO) 0.6 K/uL (0.1-1.0); MONOCYTES % (AUTO) 6.5 % (2.0-9.0); NEUTROPHILS # (AUTO) 7.2 K/uL (1.8-7.7); NEUTROPHILS % (AUTO) 72.7 % (40.0-70.0); PLATELET COUNT (AUTO) 179 K/uL (150-450); RED BLOOD CELL COUNT(AUTO) 4.19 MIL/uL (4.00-5.20); RED CELL DISTRIBUTION WIDTH 15.4 % (11.5-14.5)
[2022-04-17 10:54] LABS: HEMOGLOBIN A1C 6.5 % (3.8-5.6)
[2022-04-17 12:01] LABS: ALANINE AMINOTRANSFERASE 13 U/L (12-78); ALBUMIN 3.1 g/dL (3.4-5.0); ALKALINE PHOSPHATASE 90 U/L (46-116); ANION GAP 3 mmol/L (8-16); ASPARTATE AMINOTRANSFERASE 17 U/L (15-37); BILIRUBIN,TOTAL 0.3 mg/dL (0.1-1.0); CALCIUM, TOTAL 8.3 mg/dL (8.8-10.5); CARBON DIOXIDE 28 mmol/L (22-29); CHLORIDE 104 mmol/L (98-107); CHOL/HDL RATIO 2.8 (3.9-5.7); CHOLESTEROL 181 mg/dL (131-200); CREATININE 0.55 mg/dL (0.60-1.30); GLUCOSE,RANDOM 102 mg/dL (70-110); HDL CHOLESTEROL 65 mg/dL (40-60); LDL CHOL (CALC.) 98 mg/dL (0-130); POTASSIUM 3.9 mmol/L (3.5-5.1); SODIUM SERUM 135 mmol/L (136-145); THYROID STIMULATING HORMONE 1.07 uIU/mL (0.36-3.74); TOTAL PROTEIN, SERUM 6.8 g/dL (6.4-8.2); TRIGLYCERIDES 88 mg/dL (15-150); UREA NITROGEN, BLOOD 17 mg/dL (7-18); URIC ACID 4.5 mg/dL (2.6-7.2)
[2022-04-17 12:02] LABS: GLOMERULAR FILTR. RATE CALC > 60 mL/min (>60)
== END | disposition home or self-care (01) ==
LOC: MSR 10:20
PROVIDERS: ATTEND Hospitalist
DX: J44.9 Chronic obstructive pulmonary disease, unspecified (principal); I10 Essential (primary) hypertension; E11.9 Type 2 diabetes mellitus without complications
CPT/HCPCS: 71046; 80053; 80061; 83036; 84443; 84550; 85025; 36415-L1; 36415-TC

== ENCOUNTER → 2022-05-03 | Outpatient (CLI) | payer MEDICARE, OTHER ==
[~2022-05-03] MED LIST changes: +ALBUTEROL SULFATE HFA 90 MCG/PUFF 8 GM INHALER IH PRN; +ATORVASTATIN CALCIUM 20 MG TABLET PO SCH; +AmLODIPine BESYLATE 10 MG TABLET PO SCH; +GLIP2.5T2 PO; +HYDROCHLOROTHIAZIDE 25 MG TABLET PO SCH; +INFLUENZA VIRUS VACCINE QVS 2022-23 (6MO+)/PF 60 MCG/0.5 ML SYRINGE IM. ONE; +LOSARTAN POTASSIUM 25 MG TABLET PO SCH; +MetFORMIN HCL 500 MG TABLET PO SCH; +OMEP20 PO; +PRED-554 PO
[2022-05-03 12:54] VITALS: BP 178/76
== END | disposition home or self-care (01) ==
LOC: SRCNTR 11:53
PROVIDERS: ATTEND Hospitalist
DX: Z23 Encounter for immunization (principal); I10 Essential (primary) hypertension; E78.5 Hyperlipidemia, unspecified; K59.00 Constipation, unspecified; E66.9 Obesity, unspecified; E11.9 Type 2 diabetes mellitus without complications; M19.90 Unspecified osteoarthritis, unspecified site; R10.9 Unspecified abdominal pain; J44.9 Chronic obstructive pulmonary disease, unspecified; I25.10 Atherosclerotic heart disease of native coronary artery without angina pectoris; Z79.84 Long term (current) use of oral hypoglycemic drugs; Z79.899 Other long term (current) drug therapy
CPT/HCPCS: 90686; 90471; G0463

== ENCOUNTER 2022-06-24 22:26 | Emergency (ER) | payer MEDICARE, OTHER ==
[~2022-06-24] VITALS: Ht 152.4 cm; Wt 113.6 kg
[~2022-06-24 22:26] MED LIST changes: -ALBUTEROL SULFATE HFA 90 MCG/PUFF 8 GM INHALER IH PRN; -ATORVASTATIN CALCIUM 20 MG TABLET PO SCH; -AmLODIPine BESYLATE 10 MG TABLET PO SCH; -HYDROCHLOROTHIAZIDE 25 MG TABLET PO SCH; -INFLUENZA VIRUS VACCINE QVS 2022-23 (6MO+)/PF 60 MCG/0.5 ML SYRINGE IM. ONE; -LOSARTAN POTASSIUM 25 MG TABLET PO SCH; -METF-1211 PO; -MetFORMIN HCL 500 MG TABLET PO SCH
[2022-06-25 02:46] LABS: COVID AG,FIA SOURCE NASAL SWAB
[2022-06-25 02:47] LABS: BASOPHILS % (AUTO) 0.7 % (0.0-2.0); EOSINOPHILS % (AUTO) 1.6 % (1.0-6.0); HEMATOCRIT 41.4 % (36-46); HEMOGLOBIN 13.6 g/dL (12.0-16.0); LYMPHOCYTES # (AUTO) 3.8 K/uL (1.0-4.8); LYMPHOCYTES % (AUTO) 26.9 % (22.0-44.0); MEAN CORPUSCULAR HEMOGLOBIN 31.9 pg (26.0-34.0); MEAN CORPUSCULAR HGB CONC 32.9 G/dL (31.0-37.0); MEAN CORPUSCULAR VOLUME 97 fL (80-100); MONOCYTES % (AUTO) 6.8 % (2.0-9.0); NEUTROPHILS # (AUTO) 9.1 K/uL (1.8-7.7); PLATELET COUNT (AUTO) 226 K/uL (150-450); RED BLOOD CELL COUNT(AUTO) 4.26 MIL/uL (4.00-5.20); RED CELL DISTRIBUTION WIDTH 15.6 % (11.5-14.5)
[2022-06-25 03:00] LABS: ANION GAP 5 mmol/L (8-16); CALCIUM, TOTAL 8.8 mg/dL (8.8-10.5); CARBON DIOXIDE 36 mmol/L (22-29); CHLORIDE 99 mmol/L (98-107); CREATININE 0.71 mg/dL (0.60-1.30); GLUCOSE,RANDOM 111 mg/dL (70-110); POTASSIUM 4.1 mmol/L (3.5-5.1); SODIUM SERUM 140 mmol/L (136-145); UREA NITROGEN, BLOOD 28 mg/dL (7-18)
[2022-06-25 03:03] LABS: GLOMERULAR FILTR. RATE CALC > 60 mL/min (>60)
[2022-06-25 03:05] LABS: INFLUENZA TYPE A NEGATIVE FOR TYPE A (NEGATIVE); INFLUENZA TYPE B NEGATIVE FOR TYPE B (NEGATIVE)
[2022-06-25 03:05] LABS: ALANINE AMINOTRANSFERASE 22 U/L (12-78); ALBUMIN 3.5 g/dL (3.4-5.0); ALKALINE PHOSPHATASE 73 U/L (46-116); ASPARTATE AMINOTRANSFERASE 18 U/L (15-37); BILIRUBIN,TOTAL 0.6 mg/dL (0.1-1.0); TOTAL PROTEIN, SERUM 7.2 g/dL (6.4-8.2)
[2022-06-25] MEDS ORDERED: MethylPREDNISolone SOD SUCC 125 MG/2 ML VIAL IVP ONE (04:15)
[2022-06-25] MEDS ORDERED: ALBUTEROL SULFATE 2.5 MG/0.5 ML NEB SOLUTION NEB ONE (04:15)
[2022-06-25] MEDS ORDERED: IPRATROPIUM BROMIDE 0.5 MG/2.5 ML NEB SOLUTION NEB ONE (04:15)
[2022-06-25 04:44] LABS: CREATINE KINASE, TOTAL ONLY 45 U/L (26-192)
[2022-06-25] MEDS ORDERED: AZITHROMYCIN 500 MG TABLET PO ONE (05:30)
[2022-06-25] MEDS ORDERED: CefTRIAXone 1 GM/DEXTROSE 50 ML IV ONE (05:30)
[2022-06-25] MEDS ORDERED: PRED-554 PO (06:19)
[2022-06-25] MEDS ORDERED: AZIT250T9 PO (06:19)
[2022-06-25 06:50] VITALS: BP 145/67
== END 2022-06-25 06:50 | disposition home or self-care (01) ==
LOC: EMS 22:26
DX: J20.9 Acute bronchitis, unspecified (principal); Z20.822 Contact with and (suspected) exposure to COVID-19; E78.00 Pure hypercholesterolemia, unspecified; J45.909 Unspecified asthma, uncomplicated; I10 Essential (primary) hypertension; I25.10 Atherosclerotic heart disease of native coronary artery without angina pectoris
CPT/HCPCS: 99285; 87426; 80053; 82550; 82962; 83880; 84484; 85025; 85379; 87040; 87804; 36415; 96374; 71046; 94640; 93005; J0696; J2930; Q9967; J7613

== ENCOUNTER → 2022-07-10 | Outpatient (CLI) | payer MEDICARE, OTHER ==
[2022-07-10 10:50] VITALS: BP 152/78
== END | disposition home or self-care (01) ==
LOC: SRCNTR 10:35
PROVIDERS: ATTEND Internal Medicine Pulmonary Disease
DX: I25.10 Atherosclerotic heart disease of native coronary artery without angina pectoris (principal); I10 Essential (primary) hypertension; E11.9 Type 2 diabetes mellitus without complications; G47.33 Obstructive sleep apnea (adult) (pediatric); E66.01 Morbid (severe) obesity due to excess calories; N39.0 Urinary tract infection, site not specified; J96.12 Chronic respiratory failure with hypercapnia
CPT/HCPCS: G0463

== ENCOUNTER → 2022-11-02 | Outpatient (CLI) | payer MEDICARE, OTHER ==
[~2022-11-02] MED LIST changes: +ALBU18HF12 IH; -ALBU8HFA IH; +FURO40 PO; +POTA-92 PO
[2022-11-02 13:20] VITALS: BP 113/53
== END | disposition home or self-care (01) ==
LOC: SRCNTR 13:01
PROVIDERS: ATTEND Hospitalist
DX: Z09 Encounter for follow-up examination after completed treatment for conditions other than malignant neoplasm (principal); I10 Essential (primary) hypertension; E11.9 Type 2 diabetes mellitus without complications; E78.5 Hyperlipidemia, unspecified; K59.00 Constipation, unspecified; M19.93 Secondary osteoarthritis, unspecified site; E66.01 Morbid (severe) obesity due to excess calories; J45.909 Unspecified asthma, uncomplicated; I25.10 Atherosclerotic heart disease of native coronary artery without angina pectoris
CPT/HCPCS: G0463

== ENCOUNTER → 2022-12-18 | Outpatient (CLI) | payer MEDICARE, OTHER ==
[~2022-12-18] MED LIST changes: +ATOR20TA PO; -ATOR20TA86 PO; -HYDR25TA2 PO
[2022-12-18 12:34] LABS: BASOPHILS % (AUTO) 0.2 % (0.0-2.0); EOSINOPHILS % (AUTO) 0 % (1.0-6.0); HEMATOCRIT 38.1 % (36-46); HEMOGLOBIN 12.2 g/dL (12.0-16.0); LYMPHOCYTES # (AUTO) 1.1 K/uL (1.0-4.8); LYMPHOCYTES % (AUTO) 11.1 % (22.0-44.0); MEAN CORPUSCULAR HGB CONC 32.1 G/dL (31.0-37.0); MEAN CORPUSCULAR VOLUME 97 fL (80-100); MONOCYTES # (AUTO) 0.3 K/uL (0.1-1.0); MONOCYTES % (AUTO) 2.9 % (2.0-9.0); NEUTROPHILS # (AUTO) 8.2 K/uL (1.8-7.7); PLATELET COUNT (AUTO) 181 K/uL (150-450); RED BLOOD CELL COUNT(AUTO) 3.95 MIL/uL (4.00-5.20); RED CELL DISTRIBUTION WIDTH 15.8 % (11.5-14.5)
[2022-12-18 12:48] LABS: HEMOGLOBIN A1C 6.6 % (3.8-5.6)
[2022-12-18 12:52] LABS: NEUTROPHILS % (AUTO) 85.8 % (40.0-70.0)
[2022-12-18 12:53] LABS: ALANINE AMINOTRANSFERASE 15 U/L (12-78); ALBUMIN 3.5 g/dL (3.4-5.0); ALKALINE PHOSPHATASE 71 U/L (46-116); ANION GAP 5 mmol/L (8-16); ASPARTATE AMINOTRANSFERASE 18 U/L (15-37); BILIRUBIN,TOTAL 0.5 mg/dL (0.1-1.0); CARBON DIOXIDE 35 mmol/L (22-29); CHLORIDE 100 mmol/L (98-107); CREATININE 0.51 mg/dL (0.60-1.30); GLOMERULAR FILTR. RATE CALC > 60 mL/min (>60); GLUCOSE,RANDOM 138 mg/dL (70-110); POTASSIUM 3.9 mmol/L (3.5-5.1); SODIUM SERUM 140 mmol/L (136-145); THYROID STIMULATING HORMONE 0.41 uIU/mL (0.36-3.74); TOTAL PROTEIN, SERUM 7.5 g/dL (6.4-8.2)
== END | disposition home or self-care (01) ==
LOC: LABMN 12:03
PROVIDERS: ATTEND Hospitalist
DX: E11.9 Type 2 diabetes mellitus without complications (principal); I10 Essential (primary) hypertension; E03.9 Hypothyroidism, unspecified
CPT/HCPCS: 80053; 83036; 84443; 85025

== ENCOUNTER → 2022-12-25 | Outpatient (CLI) | payer MEDICARE, OTHER ==
[~2022-12-25] MED LIST changes: +AMLO10TA55 PO; +AMOX1TAB16 PO; +BENZ100C68 PO; +BUDE180H IH; +GUAIF600 PO; +HYDR25TA PO; +PRED-729 PO
[2022-12-25 13:26] VITALS: BP 151/69
== END | disposition home or self-care (01) ==
LOC: SRCNTR 13:00
PROVIDERS: ATTEND Hospitalist
DX: Z09 Encounter for follow-up examination after completed treatment for conditions other than malignant neoplasm (principal); I10 Essential (primary) hypertension; I25.10 Atherosclerotic heart disease of native coronary artery without angina pectoris; E11.9 Type 2 diabetes mellitus without complications; J45.909 Unspecified asthma, uncomplicated; E78.5 Hyperlipidemia, unspecified; E66.01 Morbid (severe) obesity due to excess calories
CPT/HCPCS: G0463; Z7500

== ENCOUNTER 2023-01-11 16:07 | Inpatient (IN) | payer MEDICARE, OTHER ==
[~2023-01-11] VITALS: Ht 157.5 cm; Wt 111.0 kg
[~2023-01-11 16:07] MED LIST changes: -AMLO10TA55 PO; -AMOX1TAB16 PO; -BENZ100C68 PO; -BUDE180H IH; -GUAIF600 PO; -HYDR25TA PO; -PRED-729 PO
[2023-01-11] MEDS ORDERED: AMLO10TA55 PO (16:16)
[2023-01-11] MEDS ORDERED: ALBUTEROL SULFATE 2.5 MG/0.5 ML NEB SOLUTION NEB ONE ×3 (16:29→20:45)
[2023-01-11] MEDS ORDERED: IPRATROPIUM BROMIDE 0.5 MG/2.5 ML NEB SOLUTION NEB ONE ×3 (16:29→20:45)
[2023-01-11] MEDS ORDERED: MethylPREDNISolone SOD SUCC 125 MG/2 ML VIAL IVP ONE (16:30)
[2023-01-11] MEDS ORDERED: HYDR25TA PO (16:32)
[2023-01-11 16:47] LABS: BASOPHILS % (AUTO) 0.2 % (0.0-2.0); EOSINOPHILS % (AUTO) 0.5 % (1.0-6.0); HEMATOCRIT 35.4 % (36-46); HEMOGLOBIN 11.3 g/dL (12.0-16.0); LYMPHOCYTES # (AUTO) 1.1 K/uL (1.0-4.8); LYMPHOCYTES % (AUTO) 9.2 % (22.0-44.0); MEAN CORPUSCULAR HEMOGLOBIN 31.6 pg (26.0-34.0); MEAN CORPUSCULAR HGB CONC 31.9 G/dL (31.0-37.0); MEAN CORPUSCULAR VOLUME 99 fL (80-100); MONOCYTES % (AUTO) 8.7 % (2.0-9.0); NEUTROPHILS # (AUTO) 9.7 K/uL (1.8-7.7); NEUTROPHILS % (AUTO) 81.4 % (40.0-70.0); PLATELET COUNT (AUTO) 166 K/uL (150-450); RED BLOOD CELL COUNT(AUTO) 3.58 MIL/uL (4.00-5.20); RED CELL DISTRIBUTION WIDTH 15.8 % (11.5-14.5)
[2023-01-11 17:02] LABS: ANION GAP 2 mmol/L (8-16); CALCIUM, TOTAL 8.3 mg/dL (8.8-10.5); CARBON DIOXIDE 37 mmol/L (22-29); CHLORIDE 101 mmol/L (98-107); CREATININE 0.53 mg/dL (0.60-1.30); GLOMERULAR FILTR. RATE CALC > 60 mL/min (>60); GLUCOSE,RANDOM 106 mg/dL (70-110); POTASSIUM 3.8 mmol/L (3.5-5.1); SODIUM SERUM 140 mmol/L (136-145)
[2023-01-11 17:08] LABS: ALANINE AMINOTRANSFERASE 15 U/L (12-78); ALBUMIN 2.8 g/dL (3.4-5.0); ALKALINE PHOSPHATASE 95 U/L (46-116); ASPARTATE AMINOTRANSFERASE 18 U/L (15-37); BILIRUBIN,TOTAL 0.5 mg/dL (0.1-1.0); CREATINE KINASE, TOTAL ONLY 55 U/L (26-192); TOTAL PROTEIN, SERUM 7.1 g/dL (6.4-8.2)
[2023-01-11 17:09] LABS: B-TYPE NATRIURETIC PEPTIDE 198 pg/mL (0-100)
[2023-01-11] MEDS ORDERED: ALBUTEROL SULFATE 2.5 MG/0.5 ML NEB SOLUTION NEB PRN (21:30)
[2023-01-11] MEDS ORDERED: MORPHINE SULFATE 2 MG/ML SYRINGE IVP PRN (21:30)
[2023-01-11] MEDS ORDERED: IPRATROPIUM BROMIDE 0.5 MG/2.5 ML NEB SOLUTION NEB PRN (21:30)
[2023-01-11] MEDS: CefTRIAXone 1 GM/DEXTROSE 50 ML IV SCH (22:04)
[2023-01-11] MEDS: AZITHROMYCIN 500 MG/NS 250 ML IV SCH (22:05)
[2023-01-11 22:37] LABS: APPEARANCE,URINE CLEAR (CLEAR); BILIRUBIN,URINE NEGATIVE (NEGATIVE); GLUCOSE, URINE (UA) NEGATIVE (NEGATIVE); KETONES,URINE NEGATIVE (NEGATIVE); LEUKOCYTE ESTERASE ,URINE NEGATIVE (NEGATIVE); NITRATE,URINE NEGATIVE (NEGATIVE); OCCULT BLOOD,URINE NEGATIVE (NEGATIVE); PH,URINE 5.5 (5.0-8.0); PROTEIN,URINE 30-70 mg/dL (NEGATIVE); SPECIFIC GRAVITIY, URINE 1.022 (1.003-1.030)
[2023-01-12] MEDS: HEPARIN SODIUM,PORCINE 5,000 UNITS/ML VIAL SQ SCH ×3 (00:50→15:17)
[2023-01-12] MEDS: MethylPREDNISolone SOD SUCC 125 MG/2 ML VIAL IVP SCH ×4 (01:37→20:06)
[2023-01-12] MEDS: GlipiZIDE ER 2.5 MG ER TABLET PO SCH ×2 (06:32→20:18)
[2023-01-12] MEDS ORDERED: DEXTROSE 50%-WATER 25 GM/50 ML SYRINGE IVP PRN (07:45)
[2023-01-12] MEDS: INSULIN LISPRO 100 UNITS/ML SQ PRN ×3 (08:53→17:54)
[2023-01-12] MEDS: ALBUTEROL SULFATE 2.5 MG/0.5 ML NEB SOLUTION NEB SCH ×3 (09:05→20:00)
[2023-01-12] MEDS: IPRATROPIUM BROMIDE 0.5 MG/2.5 ML NEB SOLUTION NEB SCH ×3 (09:05→20:00)
[2023-01-12] MEDS: AmLODIPine BESYLATE 10 MG TABLET PO SCH (09:11)
[2023-01-12] MEDS: OMEPRAZOLE 20 MG CAPSULE PO SCH (09:11)
[2023-01-12] MEDS: HYDROCHLOROTHIAZIDE 25 MG TABLET PO SCH (09:11)
[2023-01-12] MEDS: LOSARTAN POTASSIUM 25 MG TABLET PO SCH (09:11)
[2023-01-12] MEDS: ACETAMINOPHEN 325 MG TABLET PO PRN ×2 (09:16→20:08)
[2023-01-12 17:55] VITALS: BP 140/56
[2023-01-12] MEDS: ATORVASTATIN CALCIUM 20 MG TABLET PO SCH (20:07)
[2023-01-12 20:15] VITALS: BP 123/69
[2023-01-12 20:15] LABS: GLUCOMETER DEV NAME(LOC) 5S.1B; GLUCOSE,POINT OF CARE 158 MG/DL (70-110)
[2023-01-12 21:26] LABS: GLUCOMETER DEV NAME(LOC) 5N.2C; GLUCOSE,POINT OF CARE 157 MG/DL (70-110)
[2023-01-12] MEDS: CefTRIAXone 1 GM/DEXTROSE 50 ML IV SCH (22:24)
[2023-01-12] MEDS: AZITHROMYCIN 500 MG/NS 250 ML IV SCH (23:18)
[2023-01-13] MEDS: HEPARIN SODIUM,PORCINE 5,000 UNITS/ML VIAL SQ SCH ×4 (00:08→23:16)
[2023-01-13 00:40] VITALS: BP 126/56
[2023-01-13] MEDS: MethylPREDNISolone SOD SUCC 125 MG/2 ML VIAL IVP SCH ×5 (06:00→23:16)
[2023-01-13 06:54] VITALS: BP 141/52
[2023-01-13 06:54] LABS: BASOPHILS % (AUTO) 0.1 % (0.0-2.0); EOSINOPHILS % (AUTO) 0 % (1.0-6.0); HEMATOCRIT 37.1 % (36-46); HEMOGLOBIN 11.6 g/dL (12.0-16.0); LYMPHOCYTES # (AUTO) 0.6 K/uL (1.0-4.8); LYMPHOCYTES % (AUTO) 4.4 % (22.0-44.0); MEAN CORPUSCULAR HEMOGLOBIN 30.6 pg (26.0-34.0); MEAN CORPUSCULAR HGB CONC 31.2 G/dL (31.0-37.0); MEAN CORPUSCULAR VOLUME 98 fL (80-100); MONOCYTES # (AUTO) 0.4 K/uL (0.1-1.0); MONOCYTES % (AUTO) 2.5 % (2.0-9.0); NEUTROPHILS # (AUTO) 13.4 K/uL (1.8-7.7); PLATELET COUNT (AUTO) 193 K/uL (150-450); RED BLOOD CELL COUNT(AUTO) 3.79 MIL/uL (4.00-5.20); RED CELL DISTRIBUTION WIDTH 15.6 % (11.5-14.5)
[2023-01-13] MEDS: GlipiZIDE ER 2.5 MG ER TABLET PO SCH ×2 (06:56→17:23)
[2023-01-13 07:31] LABS: ANION GAP 3 mmol/L (8-16); CARBON DIOXIDE 39 mmol/L (22-29); CHLORIDE 102 mmol/L (98-107); CREATININE 0.47 mg/dL (0.60-1.30); GLOMERULAR FILTR. RATE CALC > 60 mL/min (>60); GLUCOSE,RANDOM 171 mg/dL (70-110); POTASSIUM 3.9 mmol/L (3.5-5.1); SODIUM SERUM 144 mmol/L (136-145)
[2023-01-13 07:32] LABS: ALANINE AMINOTRANSFERASE 15 U/L (12-78); ALBUMIN 2.8 g/dL (3.4-5.0); ALKALINE PHOSPHATASE 79 U/L (46-116); ASPARTATE AMINOTRANSFERASE 16 U/L (15-37); BILIRUBIN,TOTAL 0.2 mg/dL (0.1-1.0); CALCIUM, TOTAL 8.7 mg/dL (8.8-10.5)
[2023-01-13] MEDS: ALBUTEROL SULFATE 2.5 MG/0.5 ML NEB SOLUTION NEB SCH ×3 (07:46→20:04)
[2023-01-13] MEDS: IPRATROPIUM BROMIDE 0.5 MG/2.5 ML NEB SOLUTION NEB SCH ×3 (07:46→20:04)
[2023-01-13] MEDS: OMEPRAZOLE 20 MG CAPSULE PO SCH (08:04)
[2023-01-13] MEDS: LOSARTAN POTASSIUM 25 MG TABLET PO SCH (08:04)
[2023-01-13] MEDS: AmLODIPine BESYLATE 10 MG TABLET PO SCH (08:04)
[2023-01-13 08:11] VITALS: BP 120/54
[2023-01-13 08:26] LABS: GLUCOMETER DEV NAME(LOC) 5S.1B; GLUCOSE,POINT OF CARE 166 MG/DL (70-110)
[2023-01-13 11:14] VITALS: BP 140/65
[2023-01-13] MEDS: HYDROCHLOROTHIAZIDE 25 MG TABLET PO SCH (11:25)
[2023-01-13] MEDS: INSULIN LISPRO 100 UNITS/ML SQ PRN ×3 (11:29→20:05)
[2023-01-13] MEDS ORDERED: ACETAMINOPHEN/CODEINE 300-30 MG TABLET PO PRN (12:30)
[2023-01-13] MEDS: BENZONATATE 100 MG CAPSULE PO PRN (12:55)
[2023-01-13] MEDS: HYDROCODONE/ACETAMINOPHEN 5-325 MG TABLET PO PRN (12:56)
[2023-01-13 15:07] VITALS: BP 105/43
[2023-01-13] MEDS ORDERED: SODIUM CHLORIDE 0.9% 100 ML ONE (16:37)
[2023-01-13] MEDS ORDERED: IOHEXOL 350 MG/ML 100 ML VIAL ONE (16:37)
[2023-01-13] MEDS ORDERED: ZOLPIDEM TARTRATE 5 MG TABLET PO PRN (20:00)
[2023-01-13] MEDS: ATORVASTATIN CALCIUM 20 MG TABLET PO SCH (20:04)
[2023-01-13] MEDS: GuaiFENesin SR 600 MG ER TABLET PO SCH (20:04)
[2023-01-13] MEDS: BUDESONIDE 0.5 MG/2 ML NEB SOLUTION NEB SCH (20:05)
[2023-01-13 20:11] LABS: GLUCOMETER DEV NAME(LOC) 5N.2C; GLUCOSE,POINT OF CARE 276 MG/DL (70-110)
[2023-01-13 20:11] LABS: GLUCOMETER DEV NAME(LOC) 5N.2C; GLUCOSE,POINT OF CARE 161 MG/DL (70-110)
[2023-01-13 20:19] VITALS: BP 149/68
[2023-01-13] MEDS: AZITHROMYCIN 500 MG/NS 250 ML IV SCH (20:58)
[2023-01-13] MEDS: CefTRIAXone 1 GM/DEXTROSE 50 ML IV SCH (20:58)
[2023-01-13 21:03] LABS: ABG BASE EXCESS 8.3 mmol/L (-2.0-3.0); ABG CARBOXYHEMOGLOBIN 0.5 % (0.0-1.5); ABG HCO3 30.1 mmol/L (22.0-26.0); ABG METHEMOGLOBIN 0.3 % (0.0-1.5); ABG OXYGEN CONTENT 16.7 mL/dL (15.0-23.0); ABG OXYGEN SATURATION 93.3 % (95.0-98.0); ABG OXYHEMOGLOBIN 92.6 % (94.0-100.0); ABG PCO2 64 mmHg (35-45); ABG PH 7.343 (7.35-7.450); ABG TOTAL HEMOGLOBIN 12.8 G/dL (12.0-18.0); PO2, ARTERIAL BG 71.1 mmHg (75.0-83.0); SOURCE, BLOOD GAS ARTERIAL; TEMPERATURE, FAHRENHEIT, BG 98.1 FAHREN (96.0-98.6)
[2023-01-13 21:04] LABS: ABG A-A DIFF O2 53.5 mmHg (10-20.0); O2 DEVICE,BLOOD GAS NASAL CANNULA (ROOM AIR); SITE, BLOOD GAS LFT RADIAL
[2023-01-14 00:02] VITALS: BP 95/56
[2023-01-14] MEDS: BENZONATATE 100 MG CAPSULE PO PRN ×2 (03:10→17:13)
[2023-01-14 05:42] VITALS: BP 140/62
[2023-01-14] MEDS: GlipiZIDE ER 2.5 MG ER TABLET PO SCH ×2 (06:05→17:09)
[2023-01-14] MEDS: MethylPREDNISolone SOD SUCC 125 MG/2 ML VIAL IVP SCH ×4 (06:05→23:52)
[2023-01-14] MEDS: INSULIN LISPRO 100 UNITS/ML SQ PRN ×4 (06:06→20:38)
[2023-01-14 07:01] LABS: BASOPHILS % (AUTO) 0.1 % (0.0-2.0); EOSINOPHILS % (AUTO) 0 % (1.0-6.0); HEMATOCRIT 37.1 % (36-46); HEMOGLOBIN 11.8 g/dL (12.0-16.0); LYMPHOCYTES # (AUTO) 0.6 K/uL (1.0-4.8); LYMPHOCYTES % (AUTO) 4.5 % (22.0-44.0); MEAN CORPUSCULAR HEMOGLOBIN 30.8 pg (26.0-34.0); MEAN CORPUSCULAR HGB CONC 31.8 G/dL (31.0-37.0); MEAN CORPUSCULAR VOLUME 97 fL (80-100); MONOCYTES # (AUTO) 0.4 K/uL (0.1-1.0); MONOCYTES % (AUTO) 2.6 % (2.0-9.0); NEUTROPHILS # (AUTO) 13.4 K/uL (1.8-7.7); PLATELET COUNT (AUTO) 228 K/uL (150-450); RED BLOOD CELL COUNT(AUTO) 3.82 MIL/uL (4.00-5.20)
[2023-01-14 07:06] LABS: GLUCOMETER DEV NAME(LOC) 5S.2C; GLUCOSE,POINT OF CARE 189 MG/DL (70-110)
[2023-01-14 07:06] LABS: NEUTROPHILS % (AUTO) 92.8 % (40.0-70.0)
[2023-01-14] MEDS: IPRATROPIUM BROMIDE 0.5 MG/2.5 ML NEB SOLUTION NEB SCH ×3 (07:23→19:21)
[2023-01-14] MEDS: ALBUTEROL SULFATE 2.5 MG/0.5 ML NEB SOLUTION NEB SCH ×3 (07:23→19:21)
[2023-01-14] MEDS: BUDESONIDE 0.5 MG/2 ML NEB SOLUTION NEB SCH ×2 (07:23→19:21)
[2023-01-14 07:25] VITALS: BP 188/80
[2023-01-14 08:00] LABS: ANION GAP 6 mmol/L (8-16); CARBON DIOXIDE 38 mmol/L (22-29); CHLORIDE 99 mmol/L (98-107); GLUCOSE,RANDOM 186 mg/dL (70-110); POTASSIUM 4.1 mmol/L (3.5-5.1); SODIUM SERUM 143 mmol/L (136-145)
[2023-01-14 08:01] LABS: ALANINE AMINOTRANSFERASE 18 U/L (12-78); ALBUMIN 2.9 g/dL (3.4-5.0); ALKALINE PHOSPHATASE 77 U/L (46-116); ASPARTATE AMINOTRANSFERASE 18 U/L (15-37); BILIRUBIN,TOTAL 0.3 mg/dL (0.1-1.0); CREATININE 0.52 mg/dL (0.60-1.30); GLOMERULAR FILTR. RATE CALC > 60 mL/min (>60); TOTAL PROTEIN, SERUM 7.3 g/dL (6.4-8.2)
[2023-01-14] MEDS: AmLODIPine BESYLATE 10 MG TABLET PO SCH (08:10)
[2023-01-14] MEDS: LOSARTAN POTASSIUM 25 MG TABLET PO SCH (08:10)
[2023-01-14] MEDS: GuaiFENesin SR 600 MG ER TABLET PO SCH ×2 (08:10→20:02)
[2023-01-14] MEDS: OMEPRAZOLE 20 MG CAPSULE PO SCH (08:10)
[2023-01-14] MEDS: HYDROCHLOROTHIAZIDE 25 MG TABLET PO SCH (08:10)
[2023-01-14] MEDS: HEPARIN SODIUM,PORCINE 5,000 UNITS/ML VIAL SQ SCH ×3 (08:11→23:52)
[2023-01-14 10:16] LABS: GLUCOMETER DEV NAME(LOC) 5S.1B; GLUCOSE,POINT OF CARE 182 MG/DL (70-110)
[2023-01-14 11:15] VITALS: BP 120/93
[2023-01-14 14:01] LABS: GLUCOMETER DEV NAME(LOC) 5S.2C; GLUCOSE,POINT OF CARE 190 MG/DL (70-110)
[2023-01-14 15:21] VITALS: BP 170/73
[2023-01-14 17:21] LABS: GLUCOMETER DEV NAME(LOC) 5S.1B; GLUCOSE,POINT OF CARE 185 MG/DL (70-110)
[2023-01-14] MEDS: HYDROCODONE/ACETAMINOPHEN 5-325 MG TABLET PO PRN (17:21)
[2023-01-14] MEDS ORDERED: MethylPREDNISolone SOD SUCC 125 MG/2 ML VIAL IVP SCH (18:00)
[2023-01-14] MEDS: ATORVASTATIN CALCIUM 20 MG TABLET PO SCH (20:02)
[2023-01-14] MEDS: TEMAZEPAM 15 MG CAPSULE PO SCH (20:02)
[2023-01-14 20:15] VITALS: BP 113/52
[2023-01-14 20:25] LABS: GLUCOMETER DEV NAME(LOC) 5N.2C; GLUCOSE,POINT OF CARE 199 MG/DL (70-110)
[2023-01-14] MEDS: AZITHROMYCIN 500 MG/NS 250 ML IV SCH (20:46)
[2023-01-14] MEDS: CefTRIAXone 1 GM/DEXTROSE 50 ML IV SCH (20:46)
[2023-01-14] MEDS ORDERED: ZOLPIDEM TARTRATE 5 MG TABLET PO SCH (21:00)
[2023-01-15 00:19] VITALS: BP 168/68
[2023-01-15 04:19] VITALS: BP 176/74
[2023-01-15] MEDS: GlipiZIDE ER 2.5 MG ER TABLET PO SCH ×2 (05:34→16:16)
[2023-01-15] MEDS: MethylPREDNISolone SOD SUCC 125 MG/2 ML VIAL IVP SCH ×3 (05:35→23:19)
[2023-01-15 05:36] LABS: GLUCOMETER DEV NAME(LOC) 5S.2C; GLUCOSE,POINT OF CARE 180 MG/DL (70-110)
[2023-01-15] MEDS: INSULIN LISPRO 100 UNITS/ML SQ PRN ×4 (05:37→21:02)
[2023-01-15 06:27] LABS: BASOPHILS % (AUTO) 0.3 % (0.0-2.0); EOSINOPHILS % (AUTO) 0 % (1.0-6.0); HEMATOCRIT 37.7 % (36-46); HEMOGLOBIN 12.2 g/dL (12.0-16.0); LYMPHOCYTES # (AUTO) 0.7 K/uL (1.0-4.8); LYMPHOCYTES % (AUTO) 6.7 % (22.0-44.0); MEAN CORPUSCULAR HEMOGLOBIN 31.2 pg (26.0-34.0); MEAN CORPUSCULAR HGB CONC 32.2 G/dL (31.0-37.0); MEAN CORPUSCULAR VOLUME 97 fL (80-100); MONOCYTES # (AUTO) 0.3 K/uL (0.1-1.0); MONOCYTES % (AUTO) 2.5 % (2.0-9.0); NEUTROPHILS # (AUTO) 9.4 K/uL (1.8-7.7); PLATELET COUNT (AUTO) 200 K/uL (150-450); RED CELL DISTRIBUTION WIDTH 15.6 % (11.5-14.5)
[2023-01-15 06:56] LABS: NEUTROPHILS % (AUTO) 90.5 % (40.0-70.0)
[2023-01-15 06:57] LABS: ALANINE AMINOTRANSFERASE 19 U/L (12-78); ALBUMIN 2.9 g/dL (3.4-5.0); ALKALINE PHOSPHATASE 71 U/L (46-116); ANION GAP 0 mmol/L (8-16); ASPARTATE AMINOTRANSFERASE 19 U/L (15-37); BILIRUBIN,TOTAL 0.3 mg/dL (0.1-1.0); CALCIUM, TOTAL 8.9 mg/dL (8.8-10.5); CARBON DIOXIDE 39 mmol/L (22-29); CHLORIDE 98 mmol/L (98-107); GLOMERULAR FILTR. RATE CALC > 60 mL/min (>60); GLUCOSE,RANDOM 198 mg/dL (70-110); SODIUM SERUM 137 mmol/L (136-145); TOTAL PROTEIN, SERUM 7.1 g/dL (6.4-8.2)
[2023-01-15 07:25] VITALS: BP 163/78
[2023-01-15] MEDS: AmLODIPine BESYLATE 10 MG TABLET PO SCH (07:58)
[2023-01-15] MEDS: LOSARTAN POTASSIUM 25 MG TABLET PO SCH (07:59)
[2023-01-15] MEDS: OMEPRAZOLE 20 MG CAPSULE PO SCH (08:00)
[2023-01-15] MEDS: GuaiFENesin SR 600 MG ER TABLET PO SCH ×2 (08:00→20:46)
[2023-01-15] MEDS: HYDROCHLOROTHIAZIDE 25 MG TABLET PO SCH (08:01)
[2023-01-15] MEDS: HEPARIN SODIUM,PORCINE 5,000 UNITS/ML VIAL SQ SCH ×3 (08:02→23:19)
[2023-01-15] MEDS: BUDESONIDE 0.5 MG/2 ML NEB SOLUTION NEB SCH ×2 (08:14→19:06)
[2023-01-15] MEDS: ALBUTEROL SULFATE 2.5 MG/0.5 ML NEB SOLUTION NEB SCH ×3 (08:14→19:04)
[2023-01-15] MEDS: IPRATROPIUM BROMIDE 0.5 MG/2.5 ML NEB SOLUTION NEB SCH ×3 (08:14→19:04)
[2023-01-15 12:00] VITALS: BP 158/72
[2023-01-15 15:49] VITALS: BP 144/53
[2023-01-15] MEDS ORDERED: BENZ100C68 PO (16:24)
[2023-01-15] MEDS ORDERED: GUAIF600 PO (16:24)
[2023-01-15] MEDS ORDERED: BUDE180H IH (16:24)
[2023-01-15] MEDS ORDERED: AMOX1TAB16 PO (16:24)
[2023-01-15] MEDS ORDERED: PredniSONE 20 MG TABLET PO ONE (16:30)
[2023-01-15 20:05] VITALS: BP 156/81
[2023-01-15] MEDS: ATORVASTATIN CALCIUM 20 MG TABLET PO SCH (20:46)
[2023-01-15] MEDS: TEMAZEPAM 15 MG CAPSULE PO SCH (20:46)
[2023-01-15] MEDS: CefTRIAXone 1 GM/DEXTROSE 50 ML IV SCH (20:47)
[2023-01-15 20:56] LABS: GLUCOMETER DEV NAME(LOC) 5S.1B; GLUCOSE,POINT OF CARE 245 MG/DL (70-110)
[2023-01-15 21:25] LABS: GLUCOMETER DEV NAME(LOC) 5S.1B; GLUCOSE,POINT OF CARE 232 MG/DL (70-110)
[2023-01-15] MEDS: AZITHROMYCIN 500 MG/NS 250 ML IV SCH (21:45)
[2023-01-15 22:01] LABS: GLUCOMETER DEV NAME(LOC) 5N.2C; GLUCOSE,POINT OF CARE 233 MG/DL (70-110)
[2023-01-15] MEDS ORDERED: SODIUM CHLORIDE 0.9% 250 ML IV ONE (22:28)
[2023-01-16 00:23] VITALS: BP 148/88
[2023-01-16 04:32] VITALS: BP 159/94
[2023-01-16] MEDS: GlipiZIDE ER 2.5 MG ER TABLET PO SCH (05:39)
[2023-01-16] MEDS: INSULIN LISPRO 100 UNITS/ML SQ PRN ×2 (05:41→11:27)
[2023-01-16 06:17] LABS: HEMATOCRIT 40.2 % (36-46); HEMOGLOBIN 13.1 g/dL (12.0-16.0); MEAN CORPUSCULAR HEMOGLOBIN 31.4 pg (26.0-34.0); MEAN CORPUSCULAR HGB CONC 32.7 G/dL (31.0-37.0); MEAN CORPUSCULAR VOLUME 96 fL (80-100); PLATELET COUNT (AUTO) 205 K/uL (150-450); RED BLOOD CELL COUNT(AUTO) 4.18 MIL/uL (4.00-5.20); RED CELL DISTRIBUTION WIDTH 15.5 % (11.5-14.5)
[2023-01-16 06:35] LABS: ALANINE AMINOTRANSFERASE 22 U/L (12-78); ALBUMIN 2.9 g/dL (3.4-5.0); ALKALINE PHOSPHATASE 65 U/L (46-116); ANION GAP 4 mmol/L (8-16); ASPARTATE AMINOTRANSFERASE 20 U/L (15-37); BILIRUBIN,TOTAL 0.6 mg/dL (0.1-1.0); CALCIUM, TOTAL 8.8 mg/dL (8.8-10.5); CARBON DIOXIDE 40 mmol/L (22-29); CHLORIDE 98 mmol/L (98-107); CREATININE 0.44 mg/dL (0.60-1.30); GLOMERULAR FILTR. RATE CALC > 60 mL/min (>60); GLUCOSE,RANDOM 234 mg/dL (70-110); POTASSIUM 3.7 mmol/L (3.5-5.1); SODIUM SERUM 142 mmol/L (136-145); TOTAL PROTEIN, SERUM 6.8 g/dL (6.4-8.2)
[2023-01-16 07:25] LABS: GLUCOMETER DEV NAME(LOC) 5S.1B; GLUCOSE,POINT OF CARE 211 MG/DL (70-110)
[2023-01-16 07:29] VITALS: BP 153/107
[2023-01-16] MEDS: MethylPREDNISolone SOD SUCC 125 MG/2 ML VIAL IVP SCH (07:52)
[2023-01-16 07:53] LABS: CHOL/HDL RATIO 2.7 (3.9-5.7); CHOLESTEROL 183 mg/dL (131-200); HDL CHOLESTEROL 68 mg/dL (40-60); LDL CHOL (CALC.) 97 mg/dL (0-130); TRIGLYCERIDES 88 mg/dL (15-150)
[2023-01-16] MEDS: GuaiFENesin SR 600 MG ER TABLET PO SCH (07:53)
[2023-01-16] MEDS: HEPARIN SODIUM,PORCINE 5,000 UNITS/ML VIAL SQ SCH (07:53)
[2023-01-16] MEDS: AmLODIPine BESYLATE 10 MG TABLET PO SCH (07:53)
[2023-01-16] MEDS: HYDROCODONE/ACETAMINOPHEN 5-325 MG TABLET PO PRN (07:53)
[2023-01-16] MEDS: HYDROCHLOROTHIAZIDE 25 MG TABLET PO SCH (07:54)
[2023-01-16] MEDS: LOSARTAN POTASSIUM 25 MG TABLET PO SCH (07:54)
[2023-01-16] MEDS: OMEPRAZOLE 20 MG CAPSULE PO SCH (07:54)
[2023-01-16 07:59] LABS: BAND NEUTROPHILS % (MANUAL) 9 % (0-5); LYMPHOCYTES % (MANUAL) 9 % (22-44); METAMYELOCYTES % 1 % (0-0); MONOCYTES % (MANUAL) 1 % (2-9); SEGMENTED NEUTROPHILS % 80 % (40-70)
[2023-01-16] MEDS: ALBUTEROL SULFATE 2.5 MG/0.5 ML NEB SOLUTION NEB SCH ×2 (08:30→13:43)
[2023-01-16] MEDS: IPRATROPIUM BROMIDE 0.5 MG/2.5 ML NEB SOLUTION NEB SCH ×2 (08:30→13:43)
[2023-01-16] MEDS: BUDESONIDE 0.5 MG/2 ML NEB SOLUTION NEB SCH (08:54)
[2023-01-16 11:42] VITALS: BP 110/48
[2023-01-16] MEDS ORDERED: PRED-729 PO (12:13)
[2023-01-17 03:17] LABS: GLUCOMETER DEV NAME(LOC) 5S.2C; GLUCOSE,POINT OF CARE 199 MG/DL (70-110)
== END 2023-01-16 14:35 | disposition home or self-care (01) | DRG 871 ==
LOC: EMS 16:09 → AHU 21:22 → 5S 01-12 16:13
PROVIDERS: ADMIT Hospitalist; ATTEND Hospitalist
PROC: 5A09357 Assistance with Respiratory Ventilation, Less than 24 Consecutive Hours, Continuous Positive Airway Pressure (ICD-10-PCS; principal; 2023-01-15)
DX: A41.9 Sepsis, unspecified organism (principal); J18.9 Pneumonia, unspecified organism; J96.21 Acute and chronic respiratory failure with hypoxia; J96.22 Acute and chronic respiratory failure with hypercapnia; J45.901 Unspecified asthma with (acute) exacerbation; Z68.42 Body mass index [BMI] 45.0-49.9, adult; E11.9 Type 2 diabetes mellitus without complications; E78.00 Pure hypercholesterolemia, unspecified; E66.01 Morbid (severe) obesity due to excess calories; I25.10 Atherosclerotic heart disease of native coronary artery without angina pectoris; I10 Essential (primary) hypertension; G47.33 Obstructive sleep apnea (adult) (pediatric); Z82.49 Family history of ischemic heart disease and other diseases of the circulatory system; Z87.891 Personal history of nicotine dependence; Z87.01 Personal history of pneumonia (recurrent); Z79.84 Long term (current) use of oral hypoglycemic drugs; Z79.899 Other long term (current) drug therapy
CPT/HCPCS: 36600; 71045; 71275; 80053; 80061; 81003; 82550; 82805; 82962; 83880; 84484; 85025; 85379; 87040; 87070; 87205; 93005; 93306; 94640; 94660; 97116; 97163; 97166; 97530; 97535; 99285; G0378; J0456; J0696; J1644; J1815; J2930; J7050; Q9967; 36415-L1; 36415-TC; J7613

== ENCOUNTER → 2023-02-08 | Outpatient (CLI) | payer MEDICARE, OTHER ==
[~2023-02-08] VITALS: Ht 144.8 cm; Wt 105.5 kg
[~2023-02-08] MED LIST changes: -AMLO-258 PO; +AMLO10TA55 PO; +AMOX1TAB16 PO; +BENZ100C68 PO; +BUDE180H IH; +GUAIF600 PO; +HYDR25TA PO; -PRED-554 PO; +PRED-729 PO
[2023-02-08 13:19] VITALS: BP 137/81; PULSE 77; RESP 15; TEMP 98.9; O2SAT 94
== END | disposition home or self-care (01) ==
LOC: SRCNTR 12:45
PROVIDERS: ATTEND Internal Medicine Pulmonary Disease
DX: J96.22 Acute and chronic respiratory failure with hypercapnia (principal); I30.0 Acute nonspecific idiopathic pericarditis; I10 Essential (primary) hypertension; Z79.899 Other long term (current) drug therapy; I25.10 Atherosclerotic heart disease of native coronary artery without angina pectoris; E11.9 Type 2 diabetes mellitus without complications; E78.5 Hyperlipidemia, unspecified; E66.09 Other obesity due to excess calories; J45.909 Unspecified asthma, uncomplicated; G47.33 Obstructive sleep apnea (adult) (pediatric)
CPT/HCPCS: G0463; Z7500

== ENCOUNTER → 2023-05-23 | Outpatient (CLI) | payer MEDICARE, OTHER ==
[~2023-05-23] VITALS: Ht 144.8 cm; Wt 95.3 kg
[~2023-05-23] MED LIST changes: -AMOX1TAB16 PO; +CIPOTIC AU; -DICL100G31 TP; +DICL100G60 TP; +DICL2100G TP; -GLIP2.5T2 PO; +GLIP2.5T28 PO; +INFLUENZA VIRUS VACCINE QVS 2023-24 (6MO+)/PF 60 MCG/0.5 ML SYRINGE IM. ONE; +LIDO700A15 TP; +SEMA0.258 SQ
[2023-05-23 11:32] VITALS: BP 132/78; PULSE 70; RESP 16; TEMP 98.1; O2SAT 94
== END | disposition home or self-care (01) ==
LOC: SRCNTR 11:21
PROVIDERS: ATTEND Hospitalist
DX: H66.90 Otitis media, unspecified, unspecified ear (principal); Z23 Encounter for immunization; E11.65 Type 2 diabetes mellitus with hyperglycemia; I10 Essential (primary) hypertension; E78.5 Hyperlipidemia, unspecified
CPT/HCPCS: 90686; 90471; G0463

== ENCOUNTER → 2023-06-17 | Outpatient (CLI) | payer MEDICARE, OTHER ==
[~2023-06-17] MED LIST changes: -INFLUENZA VIRUS VACCINE QVS 2023-24 (6MO+)/PF 60 MCG/0.5 ML SYRINGE IM. ONE
[2023-06-17 13:39] VITALS: BP 139/53; PULSE 66; RESP 17; O2SAT 94
== END | disposition home or self-care (01) ==
LOC: SRCNTR 13:02
PROVIDERS: ATTEND Internal Medicine Pulmonary Disease
DX: J96.22 Acute and chronic respiratory failure with hypercapnia (principal); J45.909 Unspecified asthma, uncomplicated; E11.9 Type 2 diabetes mellitus without complications; E78.5 Hyperlipidemia, unspecified; I25.10 Atherosclerotic heart disease of native coronary artery without angina pectoris; E66.01 Morbid (severe) obesity due to excess calories; Z79.899 Other long term (current) drug therapy
CPT/HCPCS: G0463; Z7500

== ENCOUNTER → 2023-10-09 | Outpatient (CLI) | payer MEDICARE, OTHER ==
[~2023-10-09] VITALS: Ht 144.8 cm; Wt 93.0 kg
[~2023-10-09] MED LIST changes: +CETI-450 PO; +IBUP-2077 PO; +NYST15CR41 TP; +SENN-376 PO; +SIME80TA82 PO; +TRAM50TA5 PO
[2023-10-09 13:22] VITALS: BP 156/96; PULSE 61; RESP 17; TEMP 98.5; O2SAT 94
== END | disposition home or self-care (01) ==
LOC: SRCNTR 12:57
PROVIDERS: ATTEND Hospitalist
DX: L29.2 Pruritus vulvae (principal); I10 Essential (primary) hypertension; E11.9 Type 2 diabetes mellitus without complications; E78.5 Hyperlipidemia, unspecified; I25.10 Atherosclerotic heart disease of native coronary artery without angina pectoris; M19.90 Unspecified osteoarthritis, unspecified site; E66.01 Morbid (severe) obesity due to excess calories; J45.909 Unspecified asthma, uncomplicated
CPT/HCPCS: G0463; Z7500

== ENCOUNTER → 2023-11-19 | Outpatient (CLI) | payer MEDICARE, OTHER ==
[~2023-11-19] VITALS: Ht 144.8 cm; Wt 99.0 kg
[2023-11-19 14:02] VITALS: BP 186/80; PULSE 72; RESP 18; TEMP 98.8; O2SAT 95
== END | disposition home or self-care (01) ==
LOC: SRCNTR 13:47
PROVIDERS: ATTEND Hospitalist
DX: I10 Essential (primary) hypertension (principal); E78.5 Hyperlipidemia, unspecified; E66.9 Obesity, unspecified; M16.11 Unilateral primary osteoarthritis, right hip
CPT/HCPCS: G0463; Z7500

== ENCOUNTER → 2023-12-02 | Outpatient (CLI) | payer MEDICARE, OTHER ==
[~2023-12-02] VITALS: Ht 144.8 cm; Wt 98.0 kg
[~2023-12-02] MED LIST changes: -BENZ100C68 PO; -CIPOTIC AU; -DICL2100G TP; -DOXE45CR5 TP; -GUAIF600 PO; -HYDR25TA PO; -LIDO700A15 TP; -PRED-729 PO
[2023-12-02 11:57] VITALS: BP 159/71; PULSE 74; RESP 14; TEMP 98.3; O2SAT 93
== END | disposition home or self-care (01) ==
LOC: SRCNTR 11:30
PROVIDERS: ATTEND Internal Medicine Pulmonary Disease
DX: J45.909 Unspecified asthma, uncomplicated (principal); I10 Essential (primary) hypertension; E11.9 Type 2 diabetes mellitus without complications; E78.5 Hyperlipidemia, unspecified; I25.10 Atherosclerotic heart disease of native coronary artery without angina pectoris; G47.33 Obstructive sleep apnea (adult) (pediatric); J96.12 Chronic respiratory failure with hypercapnia; E66.01 Morbid (severe) obesity due to excess calories; M47.814 Spondylosis without myelopathy or radiculopathy, thoracic region; Z82.49 Family history of ischemic heart disease and other diseases of the circulatory system; Z79.899 Other long term (current) drug therapy
CPT/HCPCS: 71046; G0463

== ENCOUNTER → 2024-03-24 | Outpatient (CLI) | payer MEDICARE, OTHER ==
[~2024-03-24] VITALS: Ht 144.8 cm; Wt 98.0 kg
[~2024-03-24] MED LIST changes: +ALBU2.5V39 NEB
[2024-03-24 13:06] VITALS: BP 148/68; PULSE 59; RESP 19; TEMP 99; O2SAT 98
== END | disposition home or self-care (01) ==
LOC: SRCNTR 12:57
PROVIDERS: ATTEND Hospitalist
DX: R10.13 Epigastric pain (principal); J45.909 Unspecified asthma, uncomplicated; I10 Essential (primary) hypertension; E11.9 Type 2 diabetes mellitus without complications; E78.5 Hyperlipidemia, unspecified; I25.10 Atherosclerotic heart disease of native coronary artery without angina pectoris; E66.01 Morbid (severe) obesity due to excess calories; K59.00 Constipation, unspecified; Z79.899 Other long term (current) drug therapy
CPT/HCPCS: G0463; Z7500

== ENCOUNTER 2025-05-08 10:38 | Inpatient (IN) | payer MEDICARE, OTHER ==
[~2025-05-08] VITALS: Ht 147.3 cm; Wt 75.0 kg
[~2025-05-08 10:38] MED LIST changes: -ALBU2.5V39 NEB; +ASPI-1444 PO; +BENZ-227 PO; -BUDE180H IH; -CETI-450 PO; -FURO40 PO; +FURO40TA6 PO; -IBUP-2077 PO; +IPRA3AMP24 NEB; -NYST15CR41 TP; +OMEP-148 PO; -OMEP20 PO; -SENN-376 PO; -SIME80TA82 PO; -TRAM50TA5 PO
[2025-05-08 12:20] LABS: PLATELET COUNT (AUTO) 257 K/uL (150-450); RED BLOOD CELL COUNT(AUTO) 4.15 MIL/uL (4.00-5.20); RED CELL DISTRIBUTION WIDTH 14.7 % (11.5-14.5); WHITE BLOOD COUNT (AUTO) 8.5 K/uL (4.5-11.0)
[2025-05-08 12:38] LABS: CALCIUM, TOTAL 9.1 mg/dL (8.8-10.5); CREATININE 0.59 mg/dL (0.60-1.30); GLOMERULAR FILTR. RATE CALC > 60 mL/min (>60); GLUCOSE,RANDOM 152 mg/dL (70-110); SODIUM SERUM 142 mmol/L (136-145); UREA NITROGEN, BLOOD 18 mg/dL (7-18)
[2025-05-08] MEDS: ONDANSETRON 4 MG TABLET PO ONE (14:21)
[2025-05-08 16:41] VITALS: BP 166/77; PULSE 53; RESP 17; TEMP 98.1; O2SAT 100
[2025-05-08] MEDS ORDERED: AMLO-258 PO (17:02)
[2025-05-08] MEDS ORDERED: ATOR20TA PO (17:22)
[2025-05-08] MEDS ORDERED: GLIP2.5T28 PO (17:22)
[2025-05-08] MEDS ORDERED: LOSA-381 PO (17:22)
[2025-05-08] MEDS ORDERED: ALBU18HF12 IH (17:22)
[2025-05-08] MEDS ORDERED: FURO40TA6 PO (17:22)
[2025-05-08] MEDS ORDERED: POTA-92 PO (17:22)
[2025-05-08] MEDS ORDERED: SEMA0.258 SQ (17:22)
[2025-05-08] MEDS ORDERED: OMEP-148 PO (17:22)
[2025-05-08] MEDS ORDERED: DICL100G60 TP (17:22)
[2025-05-08] MEDS ORDERED: ASPI-1444 PO (17:22)
[2025-05-08] MEDS ORDERED: IPRA3AMP24 NEB (17:27)
[2025-05-08] MEDS ORDERED: INFLUENZA VIRUS VACCINE TVS (6MO+) 2025-26/PF 45 MCG/0.5 ML SYRINGE IM. ONE (18:00)
[2025-05-08] MEDS ORDERED: ACETAMINOPHEN 325 MG TABLET PO PRN (18:30)
[2025-05-08] MEDS ORDERED: ONDANSETRON HCL 4 MG/2 ML VIAL IVP PRN (18:30)
[2025-05-08] MEDS ORDERED: ZOLPIDEM TARTRATE 5 MG TABLET PO PRN (18:30)
[2025-05-08] MEDS ORDERED: BISACODYL 10 MG RECTAL RECTAL SUPPOSITORY PR PRN (18:30)
[2025-05-08 19:34] VITALS: BP 143/63; PULSE 64; RESP 18; TEMP 97.5; O2SAT 95
[2025-05-08] MEDS: HYDROCODONE/ACETAMINOPHEN 5-325 MG TABLET PO PRN (20:00)
[2025-05-08] MEDS: BENZONATATE 100 MG CAPSULE PO SCH (20:00)
[2025-05-08] MEDS: DICLOFENAC SODIUM 1% 100 GM GEL [2GM] TP SCH (20:02)
[2025-05-08] MEDS: ATORVASTATIN CALCIUM 20 MG TABLET PO SCH (20:02)
[2025-05-09] MEDS: HEPARIN SODIUM,PORCINE 5,000 UNITS/ML VIAL SQ SCH
[2025-05-09 05:00] VITALS: BP 149/65; PULSE 63; RESP 18; TEMP 98.1; O2SAT 96
[2025-05-09] MEDS: GlipiZIDE ER 2.5 MG ER TABLET PO SCH (06:25)
[2025-05-09 07:50] VITALS: BP 145/64; PULSE 53; RESP 18; TEMP 97.8; O2SAT 95
[2025-05-09] MEDS ORDERED: OMEPRAZOLE 20 MG CAPSULE PO SCH (09:00)
[2025-05-09] MEDS: LOSARTAN POTASSIUM 25 MG TABLET PO SCH (09:38)
[2025-05-09] MEDS: POTASSIUM CHLORIDE 10 MEQ ER TABLET PO SCH (09:40)
[2025-05-09] MEDS: PANTOPRAZOLE SODIUM 40 MG DR TABLET PO SCH (09:40)
[2025-05-09] MEDS: ASPIRIN 81 MG DR TABLET PO SCH (09:40)
[2025-05-09] MEDS: FUROSEMIDE 40 MG TABLET PO SCH (09:40)
[2025-05-09] MEDS ORDERED: DEXTROSE 50%-WATER 25 GM/50 ML SYRINGE IVP PRN (15:15)
[2025-05-09] MEDS ORDERED: INSULIN LISPRO 100 UNITS/ML SQ PRN (15:15)
[2025-05-09 15:44] VITALS: BP 132/59; PULSE 55; RESP 19; TEMP 97.7; O2SAT 97
[2025-05-09] MEDS: MORPHINE SULFATE 4 MG/ML SYRINGE IVP PRN (16:35)
[2025-05-09 19:56] LABS: GLUCOMETER DEV NAME(LOC) 4E.2; GLUCOSE,POINT OF CARE 108 MG/DL (70-110)
[2025-05-09 20:00] VITALS: BP 142/52; PULSE 60; RESP 20; TEMP 97.7; O2SAT 99
[2025-05-09 22:11] LABS: GLUCOMETER DEV NAME(LOC) 4E.2; GLUCOSE,POINT OF CARE 115 MG/DL (70-110)
[2025-05-10 03:57] VITALS: BP 124/63; PULSE 58; RESP 18; TEMP 97.9; O2SAT 97
[2025-05-10 06:31] LABS: GLUCOMETER DEV NAME(LOC) 4S.2; GLUCOSE,POINT OF CARE 71 MG/DL (70-110)
[2025-05-10 06:31] LABS: GLUCOMETER DEV NAME(LOC) 4S.2; GLUCOSE,POINT OF CARE 78 MG/DL (70-110)
[2025-05-10 07:00] LABS: GLUCOMETER DEV NAME(LOC) 4S.2; GLUCOSE,POINT OF CARE 86 MG/DL (70-110)
[2025-05-10 07:18] VITALS: BP 142/44; PULSE 56; RESP 19; TEMP 97.7; O2SAT 98
[2025-05-10] MEDS: MAGNESIUM HYDROXIDE SUSPENSION 30 ML UDCUP PO PRN (10:01)
[2025-05-10 16:05] VITALS: BP 146/68; PULSE 60; RESP 18; TEMP 98.1; O2SAT 98
[2025-05-10 18:16] LABS: GLUCOMETER DEV NAME(LOC) 4S.2; GLUCOSE,POINT OF CARE 101 MG/DL (70-110)
[2025-05-10 18:16] LABS: GLUCOMETER DEV NAME(LOC) 4S.2; GLUCOSE,POINT OF CARE 80 MG/DL (70-110)
[2025-05-10 20:45] VITALS: BP 141/67; PULSE 61; RESP 18; TEMP 97.7; O2SAT 98
[2025-05-10 21:15] LABS: GLUCOMETER DEV NAME(LOC) 6N.1C; GLUCOSE,POINT OF CARE 119 MG/DL (70-110)
[2025-05-10 21:17] VITALS: PULSE 62; RESP 18; O2SAT 99
[2025-05-10] MEDS: ALBUTEROL SULFATE 2.5 MG/0.5 ML NEB SOLUTION NEB PRN (21:34)
[2025-05-10] MEDS: IPRATROPIUM BROMIDE 0.5 MG/2.5 ML NEB SOLUTION NEB PRN (21:34)
[2025-05-10 21:35] VITALS: PULSE 58; RESP 18; O2SAT 99
[2025-05-11 04:13] VITALS: BP 145/62; PULSE 56; RESP 18; TEMP 98.2; O2SAT 97
[2025-05-11 05:56] LABS: GLUCOMETER DEV NAME(LOC) 6N.1C; GLUCOSE,POINT OF CARE 99 MG/DL (70-110)
[2025-05-11 08:20] VITALS: BP 122/60; PULSE 57; RESP 18; TEMP 98.6; O2SAT 97
[2025-05-11 15:54] VITALS: BP 140/64; PULSE 69; RESP 18; TEMP 98.4; O2SAT 98
[2025-05-11] MEDS ORDERED: PERCT PO (17:18)
== END 2025-05-11 14:53 | disposition home health service (06) | DRG 552 ==
LOC: EMS 10:38 → EDH 13:14 → 6S 16:33 → 4E 05-09 22:10
PROVIDERS: ADMIT Hospitalist; ATTEND Hospitalist
DX: M47.26 Other spondylosis with radiculopathy, lumbar region (principal); J96.10 Chronic respiratory failure, unspecified whether with hypoxia or hypercapnia; E11.9 Type 2 diabetes mellitus without complications; I10 Essential (primary) hypertension; Z99.81 Dependence on supplemental oxygen; E66.9 Obesity, unspecified; E78.00 Pure hypercholesterolemia, unspecified; I25.10 Atherosclerotic heart disease of native coronary artery without angina pectoris; J45.909 Unspecified asthma, uncomplicated; Z82.49 Family history of ischemic heart disease and other diseases of the circulatory system; Z87.891 Personal history of nicotine dependence; Z68.34 Body mass index [BMI] 34.0-34.9, adult; Z79.899 Other long term (current) drug therapy
CPT/HCPCS: 71045; 72131; 80048; 82962; 85025; 93005; 93970; 94640; 97110; 97112; 97116; 97163; 97530; 99285; G0378; J1171; J1644; J2270; Q0162; 36415-L1; 36415-TC; J7613